=== PATIENT | female | born 2000 | race American Indian/Alaskan Native ===

== ENCOUNTER 2019-05-17 17:32 | Emergency (ER) | payer OTHER, SELFPAY ==
[2019-05-17 17:48] VITALS: BP 118/74; PULSE 105; RESP 18; TEMP 37.9; O2SAT 100
--- NOTE | 2019-05-17 17:51 | ED.FEMALEGU ---
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 Reports the pain started 4 days ago, she noticed the lump 3 days ago. Reports is very painful, painful to sit. She denies any drainage from the area. She denies abnormal vaginal discharge, exposure to STDs. She reports she has been taking hot baths and ibuprofen with no relief. Reports low-grade temperature, chills. Denies general malaise. MD elicited complaint: other (Bartholin cyst) Related Data Allergies Allergy/AdvReac Type Severity Reaction Status Date / Time No Known Allergies Allergy Verified 05/17/19 17:38 Review of Systems Review of Systems: Narrative: CONSTITUTIONAL: Reports malaise, chills, low-grade fever. CARDIOVASCULAR: Denies chest pain, palpitations RESPIRATORY: Denies cough or dyspnea. GASTROINTESTINAL: Denies abdominal pain, nausea, vomiting GENITOURINARY: Denies dysuria or hematuria. SKIN: Denies rash or itching. Reports lump painful labia MUSCULOSKELETAL: Denies myalgia. NEUROLOGIC: Denies numbness, weakness, or headache. All systems reviewed & are unremarkable except as noted in HPI and below PMFSH Social History Social History Gender identity (if verbalized by the patient): Female Comments At time of signature, agree with nursing past medical, surgical, social and family history. There is no relevant family history pertinent to the presenting complaint Exam Narrative: Exam Narrative: GENERAL: Well-appearing, well-nourished, and in no acute distress. HEAD: Normocephalic. EYES: PERRLA, conjunctivae clear. NECK: Supple. No lymphadenopathy CHEST: Clear to auscultation. No respiratory distress. HEART: Regular rate and rhythm. No murmur heard. Normal peripheral pulses. SKIN: Warm, dry, no rash. : Bartholin gland abscess noted on the right labia, otherwise no induration, swelling, fluctuance, tenderness of the perianal area NEURO: Alert and oriented x3. PSYCH: Normal mood and affect : External Female Exam: normal external appearance and external swelling (Consistent with Bartholin cyst) Female genitals images: 1. Bartholin cyst approximately 2 cm x 4 cm Course Course Emergency Course: Patient is aware of diagnosis, understands and agrees to treatment plan. Anticipatory guidance given. Patient agrees to follow-up as directed and is aware of reasons to seek care at the emergency department. Portions of this record may have been created with voice recognition software Vital Signs Vital signs: Vital Signs Temperature 100.2 F H 05/17/19 17:48 Pulse Rate 105 H 05/17/19 17:48 Respiratory Rate 18 05/17/19 17:48 Blood Pressure 118/74 05/17/19 17:48 Pulse Oximetry 100 05/17/19 17:48 Temperature 100.2 F H 05/17/19 17:48 Pulse Rate 105 H 05/17/19 17:48 Respiratory Rate 18 05/17/19 17:48 Blood Pressure 118/74 05/17/19 17:48 Pulse Oximetry 100 05/17/19 17:48 Reviewed. Procedures Abscess I/D bartholin's gland: Date of Incision: 05/17/19 Time of Incision: 18:25 Side (if applicable): right Local Anesthetic: lidocaine 1% Technique: incised with #11 blade Amount of fluid expressed (mL): 8 Irrigation: No Packing used?: none I&D Results: Pus and Blood Complications: pain Abcess I&D Additional Comments: Patient was instructed to follow-up with her primary care provider tomorrow for re-evaluation. MDM - Female Genitourinary MDM Narrative Medical decision making narrative: Exam findings show no acute concerns or changes; patient is non-toxic appearing and is in no distress. Patient is appropriate for outpatient treatment and follow-up. Differential Di
== END 2019-05-17 19:05 | disposition home or self-care (01) ==
PROVIDERS: Emergency Provider Nurse Practitioner
DX: N75.1 Abscess of Bartholin's gland (principal); J45.909 Unspecified asthma, uncomplicated
CPT/HCPCS: 56420; 99203; G0463

== ENCOUNTER 2020-03-14 09:36 | Emergency (ER) | payer OTHER, SELFPAY ==
[2020-03-14 09:53] VITALS: BP 120/90; PULSE 83; RESP 16; TEMP 37.2; O2SAT 99
[2020-03-14 09:58] VITALS: BP 120/90; PULSE 83; RESP 16; TEMP 37.2; O2SAT 99
--- NOTE | 2020-03-14 09:59 | ED.NAVMDI ---
HPI - Nausea/Vomiting/Diarrhea General Chief complaint: Nausea/Vomiting/Diarrhea Stated complaint: Throwing Up Time Seen by Provider: 03/14/20 09:55 Source: patient and RN notes reviewed Mode of arrival: ambulatory Limitations: no limitations History of Present Illness HPI Narrative: 20-year-old female presents with concern for vomiting for 5 days. Reports she had been treated for urinary tract infection with Augmentin and was about group home through her course of antibiotics when she experienced vomiting and she stopped taking antibiotics. Reports she has been unable to keep fluids or food down. Reports chills, sweats. Denies fever. Denies abdominal pain, diarrhea, shortness of breath, cough, loss of sense of taste or smell. MD elicited complaint: vomiting Related Data Home Medications Medication Instructions Recorded Confirmed albuterol sulfate 2 inh INHALATION DIRECTED 03/14/20 03/14/20 amoxicillin-pot clavulanate 1 tablet PO BID 03/14/20 03/14/20 fluticasone propionate [Flovent 1 inh INHALATION DIRECTED 03/14/20 03/14/20 HFA] Allergies Allergy/AdvReac Type Severity Reaction Status Date / Time No Known Allergies Allergy Verified 03/14/20 09:51 Review of Systems Review of Systems: Narrative: CONSTITUTIONAL: Reports malaise, chills, sweats. Denies she fever. ENT: Denies rhinorrhea, congestion, sinus pain, otalgia or sore throat. CARDIOVASCULAR: Denies chest pain, palpitations, or edema. RESPIRATORY: Denies cough or dyspnea. GASTROINTESTINAL: Denies abdominal pain, diarrhea, bloody, or mucous stools.. Reports GENITOURINARY: Denies dysuria or hematuria. Reports decreased urine output MUSCULOSKELETAL: Denies myalgia. NEUROLOGIC: Denies headache. All systems reviewed & are unremarkable except as noted in HPI and below PMFSH Social History Social History Gender identity (if verbalized by the patient): Female Comments At time of signature, agree with nursing past medical, surgical, social and family history. There is no relevant family history pertinent to the presenting complaint Exam Narrative: Exam Narrative: GENERAL: Nontoxic appearing and in no acute distress. HEAD: Normocephalic, atraumatic. EYES: PERRLA, conjunctivae clear ENT: Nares clear. Mucous membranes dry. Oropharynx without edema, erythema, or lesions. Tonsils not enlarged and without exudate. NECK: Supple. No lymphadenopathy CHEST: Speaks in full sentences. Clear to auscultation, breath sounds even. No respiratory distress. HEART: Regular rate and rhythm. ABDOMEN: Soft, flat, nondistended. No guarding. Bowel sounds present in all four quadrants. Negative Lemus?s sign. No periumbilical tenderness. SKIN: Warm, dry, no rash. Poor skin turgor NEURO: Alert and oriented x3. PSYCH: Normal mood and affect Course Course Emergency Course: Patient is aware of, understands and agrees to reasons to be seen in the emergency department. Patient agrees to proceed directly to the emergency department. Portions of this record may have been created with voice recognition software Vital Signs Vital signs: Vital Signs Temperature 99.0 F 03/14/20 09:53 Pulse Rate 83 03/14/20 09:53 Respiratory Rate 16 03/14/20 09:53 Blood Pressure 120/90 03/14/20 09:53 Pulse Oximetry 99 03/14/20 09:53 Temperature 99.0 F 03/14/20 09:58 Pulse Rate 83 03/14/20 09:58 Respiratory Rate 16 03/14/20 09:58 Blood Pressure 120/90 03/14/20 09:58 Pulse Oximetry 99 03/14/20 09:58 Reviewed. Transfer Transfered to: [place] Transportation: Other (Private vehicle) Transfer rationale: Vomiting for 5 days MDM - Nausea/Vomiting/Diarrhea MDM Narrative Medical decision making narrative: Exam findings and history warrant further evaluation emergency department; patient is non-toxic appearing and is in no distress. Patient is appropriate for transfer via private vehicle. Critical Care Time Critical Care Time Critical Care Time: No Di
== END 2020-03-14 10:15 | disposition short-term general hospital (02) ==
PROVIDERS: Emergency Provider Nurse Practitioner
DX: R11.2 Nausea with vomiting, unspecified (principal); J45.909 Unspecified asthma, uncomplicated
CPT/HCPCS: 99212; G0463

== ENCOUNTER 2020-03-14 11:06 | Emergency (ER) | payer OTHER, SELFPAY ==
[2020-03-14] VITALS (8 sets, daily range): BP systolic 116–142; BP diastolic 73–91; PULSE 76–115; RESP 16–20; TEMP 36.6; O2SAT 98–100
--- NOTE | ~2020-03-14 | CT_ITS ---
EXAMINATION: CT abdomen pelvis w con DATE: 03/14/2020 17:00 INDICATION: Nausea and vomiting for 5 days TECHNIQUE: Computed tomography (CT) of the abdomen and pelvis was performed with 100 cc Omnipaque 350 intravenous contrast. The dose-length product was 161.01 mGy-cm. Automated exposure control and iter ative reconstruction technique were employed. COMPARISON: None. FINDINGS: Heart size normal. No significant pleural or pericardial effusion. The liver, spleen, pancr eas, adrenal glands and kidneys are unremarkable. Gallbladder is present. Nonobstructive bowel gas pa ttern. There is a small amount of free fluid in the pelvis. Bladder is unremarkable. No significant v ascular abnormality. No lymphadenopathy. There is a 2.1 cm cyst near the right vaginal introitus like ly a Bartholin cyst. No acute osseous abnormality. IMPRESSION: 1. No acute abdominal abnormality. 2: Cystic mass measuring 2.1 cm narrowing of the right vaginal introitus, most likely a Bartholin's c yst. Reviewed, dictated and finalized at location [facility]. 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 No acute abdominal abnormality. 2: Cystic mass measuring 2.1 cm narrowing of the right vaginal introitus, most likely a Bartholin's cyst.
[2020-03-14 11:54] LABS: Basophils Percent Auto 0.2 % (0.2-1.2); Hemoglobin 16.9 g/dL (12.0-15.0); Immature Granulocyte Absolute 0.05 K/mm3 (0.00-0.031); Immature Granulocyte Percent A 0.3 % (0-0.5); Lymphocytes Absolute Auto 4.22 K/mm3 (0.9-3.2); Lymphocytes Percent Auto 25.3 % (18.3-44.2); Mean Corpuscular HGB Conc 32.5 g/dl (32-36); Mean Corpuscular Volume 83.2 fl (80-100); Monocytes Absolute Auto 1.3 K/mm3 (0.1-0.6); Monocytes Percent Auto 7.7 % (2.6-8.5); Neutrophils Absolute Auto 11.1 K/mm3 (1.3-6.7); Neutrophils Percent Auto 66.5 % (45.5-73.1); Platelet Count Result 399 k/mm3 (150-375); Red Blood Count 6.25 M/mm3 (4.2-5.4); Red Cell Distribution Width 14.6 % (11.5-14.5); White Blood Count 16.7 K/mm3 (4.5-10.0)
[2020-03-14 12:10] LABS: Alanine Aminotransferase 16 U/L (4-35); Albumin Level 5.1 g/dL (3.5-5.1); Alkaline Phosphatase 114 U/L (38-126); Anion Gap 17 mmol/L (8-16); Aspartate Amino Transferase 28 U/L (14-36); Bilirubin,Total 1.2 mg/dL (0.2-1.3); Blood Urea Nitrogen 15 mg/dL (7-17); Calcium 9.9 mg/dL (8.4-10.2); Carbon Dioxide 24 mmol/L (22-30); Chloride 97 mmol/L (98-107); Estimated CRCL calculation 62 ml/min; Estimated Glomerular Filt Rate > 60; Glucose 83 mg/dL (65-105); Lipase 59 U/L (23-300); Potassium 4.1 mmol/L (3.4-5.0); Sodium 138 mmol/L (137-145)
[2020-03-14] MEDS: SODIUM CHLORIDE 0.9% IV 1,000 ML 999 ML IV CONT ×2 (12:47→14:15)
[2020-03-14] MEDS: METOCLOPRAMIDE HCL INJ 10 MG/2 ML VIAL IV PUSH (12:47)
[2020-03-14 12:48] LABS: Add Urine Microscopic? YES; Appearance Urine Cloudy (Clear); Bacteria Urine 1+ /hpf; Bilirubin Urine Negative (Negative); Blood Urine 3+ (Negative); Glucose Urine UA Negative (Negative); Ketones Urine 2+ mg/dL (Negative); Leukocyte Esterase Ur Trace LEU/UL (Negative); Mucus Urine Heavy /lpf; Nitrate Urine Negative (Negative); Protein Urine 3+ mg/dL (Negative); RBC Urine >75 /hpf (0-2); Squamous Epithelial Cell Urine Many /hpf (Few); Urobilinogen Urine Negative mg/dL (<2.0); WBC Urine 31-50 /hpf
[2020-03-14 12:51] LABS: Color Urine Amber (Yellow); Specific Grav Ur 1.035 (1.001-1.035)
[2020-03-14 13:01] LABS: Amphetamine Screen Urine Negative (Negative); Barbiturate Screen Urine Negative (Negative); Benzodiazepines Screen Urine Negative (Negative); Cannabinoid Screen Urine Positive (Negative); Cocaine Screen Urine Negative (Negative); Methadone Screen Urine Negative (Negative); Opiate Screen Urine Negative (Negative); Phencyclidine Screen Urine Negative (Negative)
--- NOTE | 2020-03-14 14:16 | PC.NURSE ---
Per EDP Jung, hold drawing repeat CBC until second liter of NS is completed.
--- NOTE | 2020-03-14 14:31 | ED.GENADULT ---
HPI - General Adult General Chief complaint: Nausea/Vomiting/Diarrhea Stated complaint: VOMITING X5D Time Seen by Provider: 03/14/20 12:25 Source: patient History of Present Illness HPI narrative: Patient is a 20 y/o female complaining of nausea and vomiting for last 5 days. She states that she is vomiting up food and liquid. She states that she vomited more than 10 times during last 24 hours. There is no alleviating or exacerbating factor. She has mild abdominal pain due to vomiting. She denies diarrhea. Related Data Home Medications Medication Instructions Recorded Confirmed albuterol sulfate 2 inh INHALATION DIRECTED 03/14/20 03/14/20 amoxicillin-pot clavulanate 1 tablet PO BID 03/14/20 03/14/20 fluticasone propionate [Flovent 1 inh INHALATION DIRECTED 03/14/20 03/14/20 HFA] Allergies Allergy/AdvReac Type Severity Reaction Status Date / Time No Known Allergies Allergy Verified 03/14/20 09:51 Review of Systems Constitutional: Constitutional: Denies chills, Denies fever(s), Denies headache(s) and Denies weakness Eyes: Eyes: Denies blurry vision ENT: Denies headache(s) and Denies neck pain Cardiovascular: Cardiovascular: Denies chest pain and Denies dyspnea Respiratory: Respiratory: Denies cough and Denies dyspnea Gastrointestinal: Gastrointestinal: Reports abdominal pain, Denies diarrhea, Reports nausea and Reports vomiting Genitourinary: Genitourinary: Denies hematuria and Denies dysuria Musculoskeletal: Musculoskeletal: Denies back pain and Denies neck pain Neurologic: Denies headache(s) and Denies weakness PMF Social History Social History Gender identity (if verbalized by the patient): Female Exam Const: General: no acute distress and well developed Orientation/consciousness: oriented to person, oriented to place, oriented to time and patient oriented x3 HENMT: Head: normocephalic Ears: external ears normal General nose exam: Normal external nose present Eyes: General: appearance normal, both eyes and all related structures Conjunctivae: conjunctivae normal Neck: Neck: normal visual inspection and full ROM Chest: Chest palpation & inspection: normal inspection of the chest and no tenderness Resp: Effort & Inspection: normal respiratory effort Auscultation: clear to auscultation bilaterally Cardio: Rate: regular rate Rhythm: regular rhythm GI: GI Palp: No abdominal tenderness and Yes Soft to palpation Skin: General skin exam: normal color and turgor normal Neuro: General: oriented to person, oriented to place, oriented to time and patient oriented x3 Cognition (Neuro): normal cognition Extrem: General: normal to inspection, full ROM and no pedal edema Psych: Appearance: grossly normal Mental Status: mental status grossly normal Affect: normal affect Course Vital Signs Vital signs: Vital Signs Temperature 36.6 C 03/14/20 11:33 Pulse Rate 80 03/14/20 11:33 Respiratory Rate 18 03/14/20 11:33 Blood Pressure 117/86 03/14/20 11:33 Pulse Oximetry 98 03/14/20 11:33 Temperature 36.6 C 03/14/20 18:00 Pulse Rate 91 03/14/20 18:00 Respiratory Rate 16 03/14/20 18:00 Blood Pressure 142/89 H 03/14/20 18:00 Pulse Oximetry 100 03/14/20 18:00 Medical Decision Making Vital Signs Vital Signs: Vital Signs Temperature 36.6 C 03/14/20 11:33 Pulse Rate 80 03/14/20 11:33 Respiratory Rate 18 03/14/20 11:33 Blood Pressure 117/86 03/14/20 11:33 Pulse Oximetry 98 03/14/20 11:33 Temperature 36.6 C 03/14/20 18:00 Pulse Rate 91 03/14/20 18:00 Respiratory Rate 16 03/14/20 18:00 Blood Pressure 142/89 H 03/14/20 18:00 Pulse Oximetry 100 03/14/20 18:00 Lab Data Result diagrams: 03/14/20 15:08 03/14/20 11:42 Labs: Lab Results 03/14/20 03/14/20 03/14/20 Range/Units 11:42 11:42 12:33 WBC 16.7 H (4.5-10.0) K/mm3 RBC
[2020-03-14 15:20] LABS: Basophils Percent Auto 0.3 % (0.2-1.2); Eosinophils Percent Auto 0.1 % (0-4.4); Hematocrit 43.4 % (37.0-47.0); Immature Granulocyte Absolute 0.04 K/mm3 (0.00-0.031); Immature Granulocyte Percent A 0.3 % (0-0.5); Mean Corpuscular HGB Conc 32.3 g/dl (32-36); Mean Corpuscular Hemoglobin 27.1 pg (26-34); Mean Corpuscular Volume 84.1 fl (80-100); Mean Platelet Volume 10.7 fl (7.4-10.4); Monocytes Absolute Auto 1.1 K/mm3 (0.1-0.6); Neutrophils Absolute Auto 9.1 K/mm3 (1.3-6.7); Neutrophils Percent Auto 69.3 % (45.5-73.1); Platelet Count Result 315 k/mm3 (150-375); Red Blood Count 5.16 M/mm3 (4.2-5.4); Red Cell Distribution Width 13.7 % (11.5-14.5); White Blood Count 13.2 K/mm3 (4.5-10.0)
== END 2020-03-14 18:12 | disposition home or self-care (01) ==
PROVIDERS: Emergency Medicine; Emergency Provider Emergency Medicine
DX: R11.2 Nausea with vomiting, unspecified (principal); F12.90 Cannabis use, unspecified, uncomplicated; E86.0 Dehydration; N75.0 Cyst of Bartholin's gland
CPT/HCPCS: 36415; 74177; 80053; 80307; 81001; 81025; 83690; 85025; 87086; 87088; 96361; 96374; 99284; J2765; J7030; Q9967

== ENCOUNTER 2020-04-19 20:02 | Emergency (ER) | payer OTHER, SELFPAY ==
--- NOTE | ~2020-04-19 | CT_ITS ---
EXAMINATION: CT abdomen pelvis wo con DATE: 04/19/2020 22:45 INDICATION: Abdominal pain and vomiting TECHNIQUE: Computed tomography (CT) of the abdomen and pelvis was performed without intravenous contr ast. Automated exposure control and iterative reconstruction technique were employed. Exam dose: 171 .44 mGy-cm total exam DLP. COMPARISON: 03/14/[address] abdomen pelvis FINDINGS: The lung bases are clear. Normal heart size. No pericardial or pleural effusion. No hepatic space-occupying mass lesion is evident. High density bile within the gallbladder. No gallb ladder wall thickening or pericholecystic fluid or fat stranding is evident. No bile duct or pancreat ic duct dilatation. No pancreatic mass lesion or calcification is evident. Normal splenic size. Normal morphology of the adrenal glands. No renal mass lesion is evident on this limited noncontrast examination. No urinary tract calculus or hydroureteronephrosis. The urinary bladder is evacuated and not optimally evaluated. Normal caliber of the abdominal aorta. No intraperitoneal or retroperitoneal or pelvic mass lesion or adenopathy or ascites is detected. No bowel obstruction is detected. Previously reported right Bartholin's cyst is diminished in size or resolved since 03/14/2020. Included skeletal structures are unremarkable. IMPRESSION: No significant abnormality Reviewed, dictated and finalized at [facility]. Reviewed, dictated and finalized at location [facility]. 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
[2020-04-19 20:03] VITALS: BP 118/80; PULSE 80; RESP 16; TEMP 36.8; O2SAT 99
[2020-04-19 20:48] VITALS: BP 128/81; PULSE 71
[2020-04-19 21:15] LABS: Basophils Absolute Auto 0.1 K/mm3 (0.0-0.1); Basophils Percent Auto 0.3 % (0.2-1.2); Eosinophils Percent Auto 0.1 % (0-4.4); Hematocrit 46.1 % (37.0-47.0); Hemoglobin 14.8 g/dL (12.0-15.0); Immature Granulocyte Absolute 0.06 K/mm3 (0.00-0.031); Immature Granulocyte Percent A 0.3 % (0-0.5); Lymphocytes Percent Auto 13.8 % (18.3-44.2); Mean Corpuscular HGB Conc 32.1 g/dl (32-36); Mean Platelet Volume 11.5 fl (7.4-10.4); Monocytes Absolute Auto 0.9 K/mm3 (0.1-0.6); Monocytes Percent Auto 5.2 % (2.6-8.5); Neutrophils Percent Auto 80.3 % (45.5-73.1); Platelet Count Result 288 k/mm3 (150-375); Red Blood Count 5.49 M/mm3 (4.2-5.4); Red Cell Distribution Width 14.1 % (11.5-14.5); White Blood Count 17.4 K/mm3 (4.5-10.0)
[2020-04-19 21:28] LABS: Alanine Aminotransferase 41 U/L (4-35); Albumin Level 4.8 g/dL (3.5-5.1); Alkaline Phosphatase 99 U/L (38-126); Anion Gap 14 mmol/L (8-16); Aspartate Amino Transferase 53 U/L (14-36); Bilirubin,Total 1.6 mg/dL (0.2-1.3); Blood Urea Nitrogen 10 mg/dL (7-17); Calcium 9.2 mg/dL (8.4-10.2); Carbon Dioxide 20 mmol/L (22-30); Chloride 106 mmol/L (98-107); Estimated CRCL calculation 93 ml/min; Estimated Glomerular Filt Rate > 60; Glucose 74 mg/dL (65-105); Lipase 175 U/L (23-300); Potassium 3.7 mmol/L (3.4-5.0); Sodium 140 mmol/L (137-145)
[2020-04-19] MEDS: SODIUM CHLORIDE 0.9% IV 1,000 ML 999 ML IV CONT ×2 (21:46)
[2020-04-19] MEDS: METOCLOPRAMIDE HCL INJ 10 MG/2 ML VIAL IV PUSH (21:47)
[2020-04-19 21:48] VITALS: BP 140/91; PULSE 75; RESP 18; O2SAT 100
--- NOTE | 2020-04-19 21:48 | ED.GENADULT ---
HPI - General Adult General Chief complaint: Nausea/Vomiting/Diarrhea Stated complaint: nausea Time Seen by Provider: 04/19/20 21:07 History of Present Illness HPI narrative: Patient is a 20-year-old female who presents the emerge department chief complaint of nausea and vomiting. The patient reports that for the last 5 days she has had nausea and vomiting and been unable to tolerate p.o. intake. Patient reports she was seen at [facility] and was treated with IV fluids and nausea medications. The patient reports that she has had similar episodes in the past that required IV hydration. Patient states that she has generalized abdominal pain reports no fever reports has had some diarrhea for the last several days but currently none today. Patient reports that she feels very weak and gets lightheaded whenever she stands up. Related Data Home Medications Medication Instructions Recorded Confirmed albuterol sulfate 2 inh INHALATION DIRECTED 03/14/20 03/14/20 amoxicillin-pot clavulanate 1 tablet PO BID 03/14/20 03/14/20 fluticasone propionate [Flovent 1 inh INHALATION DIRECTED 03/14/20 03/14/20 HFA] Allergies Allergy/AdvReac Type Severity Reaction Status Date / Time No Known Allergies Allergy Verified 03/14/20 09:51 Review of Systems Review of Systems: Narrative: A 10 system review of systems was completed on the patient and is negative except for what is stated in the HPI. Nursing and ancillary documentation was reviewed. [facility] Social History Social History Gender identity (if verbalized by the patient): Female Comments Patient denies a significant past medical history Social history the patient reports occasional use of marijuana Exam Narrative: Exam Narrative: GENERAL: Well-appearing, well-nourished, and in no acute distress. HEAD: Normocephalic, atraumatic. EYES: PERRLA and EOMI. ENT: Nares clear, no rhinorrhea or epistaxis. Mucous membranes moist. NECK: Supple. CHEST: Clear to auscultation. No respiratory distress. HEART: Regular rate and rhythm. No murmur heard. Normal peripheral pulses. ABDOMEN: Soft, nontender, nondistended, normal active bowel sounds. EXTREMITIES: Normal range of motion. No edema. SKIN: Warm, dry, no rash. NEURO: No focal deficits. Alert and oriented x3. PSYCH: Normal mood and affect. Course Course Emergency Course: CT scan shows no evidence of acute abnormality laboratory studies showed mild elevation in LFTs. Patient was able to tolerate p.o. intake did have a small amount of vomiting afterwards. The patient was able to ambulate without difficulty patient will be discharged home with oral antiemetic and instructions to follow-up with a primary care physician. Vital Signs Vital signs: Vital Signs Temperature 36.8 C 04/19/20 20:03 Pulse Rate 80 04/19/20 20:03 Respiratory Rate 16 04/19/20 20:03 Blood Pressure 118/80 04/19/20 20:03 Pulse Oximetry 99 04/19/20 20:03 Temperature 36.8 C 04/19/20 20:03 Pulse Rate 99 04/20/20 00:18 Respiratory Rate 18 04/20/20 00:18 Blood Pressure 124/79 04/20/20 00:18 Pulse Oximetry 100 04/20/20 00:18 Medical Decision Making Vital Signs Vital Signs: Vital Signs Temperature 36.8 C 04/19/20 20:03 Pulse Rate 80 04/19/20 20:03 Respiratory Rate 16 04/19/20 20:03 Blood Pressure 118/80 04/19/20 20:03 Pulse Oximetry 99 04/19/20 20:03 Temperature 36.8 C 04/19/20 20:03 Pulse Rate 99 04/20/20 00:18 Respiratory Rate 18 04/20/20 00:18 Blood Pressure 124/79 04/20/20 00:18 Pulse Oximetry 100 04/20/20 00:18 Lab Data Result diagrams: 04/19/20 21:06 04/19/20 21:06 Labs: Lab Results 04/19/20 04/19/20 04/19/20 Range/Units 21:06 21:06 22:28 WBC 17.4 H (4.5-10.0) K/mm3 RBC 5.49 H (4.2-5.4) M/mm3 Hgb 14.8 (12.0-15.0) g/dL Hct 46.1 (37.0-47.0) % MCV 84.0
--- NOTE | 2020-04-19 22:11 | PC.NURSE ---
pt has been asked several times to give a urine sample , and has been unable.
[2020-04-19 22:44] LABS: Add Urine Microscopic? YES; Appearance Urine Clear (Clear); Bilirubin Urine Negative (Negative); Blood Urine Negative (Negative); Color Urine Yellow (Yellow); Glucose Urine UA Negative (Negative); Ketones Urine 2+ mg/dL (Negative); Leukocyte Esterase Ur Negative LEU/UL (Negative); Mucus Urine Rare /lpf; Nitrate Urine Negative (Negative); Protein Urine 1+ mg/dL (Negative); RBC Urine 0-2 /hpf (0-2); Squamous Epithelial Cell Urine Few /hpf (Few); Urobilinogen Urine Negative mg/dL (<2.0); WBC Urine 0-3 /hpf
[2020-04-19 22:46] LABS: Specific Grav Ur 1.033 (1.001-1.035)
[2020-04-19 23:09] VITALS: BP 136/88; PULSE 75; RESP 18; O2SAT 100
[2020-04-20 00:18] VITALS: BP 124/79; PULSE 99; RESP 18; O2SAT 100
[2020-04-20 01:34] VITALS: BP 126/77; PULSE 72; RESP 18; O2SAT 99
== END 2020-04-20 01:37 | disposition home or self-care (01) ==
PROVIDERS: Emergency Medicine; Emergency Provider Emergency Medicine
DX: R11.2 Nausea with vomiting, unspecified (principal)
CPT/HCPCS: 36415; 74176; 80053; 81001; 81025; 83690; 85025; 96361; 96374; 99284; J2765; J7030

== ENCOUNTER 2023-08-16 14:07 | Emergency (ER) | payer OTHER, SELFPAY ==
[2023-08-16 14:32] VITALS: BP 117/74; PULSE 91; RESP 16; TEMP 36.4; O2SAT 96
--- NOTE | 2023-08-16 15:28 | ED.NAVMDI ---
HPI - Nausea/Vomiting/Diarrhea General Chief complaint: Nausea/Vomiting/Diarrhea Stated complaint: vomitting Time Seen by Provider: 08/16/23 14:51 Source: patient and family ( mother) Mode of arrival: ambulatory Limitations: no limitations History of Present Illness HPI Narrative: 23-year-old female presents with nausea and vomiting greater than weeks duration. Patient states she has episodes of this that occur. she states she has previously been told this was attributed to cannabinoid hyperemesis syndrome but she states the last time she used marijuana was at the end of June. She notes that often she will experience the symptoms approximately 1 week after menstruation. Her last menstrual period was 08/06/2023 psych finished on 08/13/2023. Her last bowel movement was 08/06/2023 described as runny. She denies any dysuria, hematuria, or urgency or frequency she is having suprapubic and left lower quadrant abdominal pain. She states that often she will feel like she needs to urinate but not produce any or have a small void. denies any other vaginal discharge. Related Data Home Medications Medication Instructions Recorded Confirmed albuterol sulfate 90 mcg/actuation 2 inh inhalation DIRECTED 03/14/20 03/14/20 aerosol inhaler amoxicillin 875 mg-potassium 1 tablet PO BID 03/14/20 03/14/20 clavulanate 125 mg tablet fluticasone propionate 110 1 inh inhalation DIRECTED 03/14/20 03/14/20 mcg/actuation HFA aerosol inhaler (Flovent HFA) Allergies Allergy/AdvReac Type Severity Reaction Status Date / Time No Known Allergies Allergy Verified 03/14/20 09:51 [facility] Social History Social History Substance use type: marijuana Last use: June 2023 Gender identity (if verbalized by the patient): Female Exam Narrative: GENERAL: thin but in no acute distress. HEAD: Normocephalic, atraumatic. EYES: Non injected, non icteric ENT: Nares clear, no rhinorrhea or epistaxis. NECK: Supple. CHEST: Speaking in full sentences. No respiratory distress. HEART: Regular rate and rhythm. . ABDOMEN: Soft, nondistended. Mild suprapubic and LLQ tenderness to palpation without rigidity or guarding. Not peritoneal. EXTREMITIES: Normal range of motion. No edema. SKIN: Warm, dry, no rash. NEURO: No focal deficits. Alert and oriented x3. PSYCH: Normal mood and affect. Course Vital Signs Vital signs: Vital Signs Temperature 97.6 F 08/16/23 14:32 Pulse Rate 91 08/16/23 14:32 Respiratory Rate 16 08/16/23 14:32 Blood Pressure 117/74 08/16/23 14:32 Pulse Oximetry 96 08/16/23 14:32 Oxygen Delivery Room Air 08/16/23 14:32 Temperature 97.8 F 08/16/23 17:27 Pulse Rate 70 08/16/23 18:22 Respiratory Rate 20 08/16/23 18:22 Blood Pressure 110/74 08/16/23 18:22 Pulse Oximetry 99 08/16/23 18:22 Oxygen Delivery Room Air 08/16/23 14:32 MDM - Nausea/Vomiting/Diarrhea MDM Narrative Medical decision making narrative: Patient presents with nausea vomiting occurring for more than 1 week and associated with low abdominal pain. Patient states she has previously been told that these cyclical episodes that she experienced his yd possibly due to cannabinoid hyperemesis syndrome but she has used marijuana since the end of June. She does note that she will often experience the symptoms after her menstrual period. In the emergency department they are afebrile with vital signs within normal limits. While the initial presumption was a possibility of cannabinoid hyperemesis syndrome, patient does endorse lower abdominal pain than would be expected for typical epigastric pain of CHS. for this reason, in addition to symptomatically treating, will obtain labs and urine. Urinalysis is concerning for urinary tract infection and she does have some suprapubic /left lower quadrant abdominal pain. Patient given 1st dose of antibiotic while in the emergency department. On reassessment, she is drowsy but arousable to verbal stimuli. She is also noted to be hypokalemic and this is repleted with a check of magnesium which is normal. Patient and her mother are updated on the findings and mother verifies understanding. Mother will be providing transportation given patient's somnolence. Advised follow-up with primary care physician return to the emergency department with any new or worsening symptoms. Verifies understanding. Comfortable with the plan. Differential Diagnosis Differential diagnosis: Likely gastroenteritis, drug-induced nausea and vomiting, dehydration and other ( Urinary tract infection, diverticulitis, cannabinoid hyperemesis syndrome, pancreatitis , /ectopic, cyclic vomiting, post menstrual pain) Lab Data Attestation: I reviewed the patient's lab results. Lab results narrative: Mild leukocytosis and thrombocytosis. Mild hyponatremia 08/16/23 16:28 08/16/23 16:28 Labs: Lab Results 08/16/23 08/16/23 Range/Units 16:27 16:28 WBC 13.1 H (4.5-10.0) K/mm3 RBC 5.56 H (4.2-5.4) M/mm3 Hgb 15.0 (12.0-15.0) g/dL Hct 47.0 (37.0-47.0) % MCV 84.5 (80-100) fl MCH 27.0 (26-34) pg MCHC 31.9 L (32-36) g/dl RDW 13.2 (11.5-14.5) % Plt Count 406 H (150-375) k/mm3 MPV 12.0 H (7.4-10.4) fl Immature Gran % (Auto) 0.3 (0-0.5) % Neut % (Auto) 67.0 (45.5-73.1) % Lymph % (Auto) 23.6 (18.3-44.2) % Winn % (Auto) 8.5 (2.6-8.5) % Eos % (Auto) 0.2 (0-4.4) % Baso % (Auto) 0.4 (0.2-1.2) % Lymph # (Auto) 3.09 (0.9-3.2) K/mm3 Winn # (Auto) 1.1 H (0.1-0.6) K/mm3 Eos # (Auto) 0.0 (0-0.3) K/mm3 Baso # (Auto) 0.1 (0.0-0.1) K/mm3 Abs Immat Gran (auto) 0.04 H (0.00-0.031) K/mm3 Absolute Neuts (auto) 8.8 H (1.3-6.7) K/mm3 Absolute Nucleated RBC 0.000 (0.0-0.012) K/mm3 Nucleated RBC % 0.0 (0.0-0.2) % Sodium 134 L (137-145) mmol/L Potassium 3.1 L (3.4-5.0) mmol/L Chloride 97 L (98-107) mmol/L Carbon Dioxide 29 (22-30) mmol/L Anion Gap 8 (4-12) mmol/L BUN 12 (7-17) mg/dL Creatinine 0.80 (0.7-1.0) mg/dL Estim Creat Clear Calc 63 ml/min Estimated GFR > 60 (59 - ) Glucose 95 (65-110) mg/dL Calcium 9.2 (8.4-10.2) mg/dL Magnesium 2.5 H (1.6-2.3) mg/dL Total Bilirubin 1.2 (0.2-1.3) mg/dL AST 25 (14-36) U/L ALT 10 (6-35) U/L Alkaline Phosphatase 95 (38-126) U/L Total Protein 8.0 (6.3-8.2) g/dL Albumin 4.9 (3.5-5.1) g/dL Lipase 71 (23-300) U/L Urine Color Dark yellow (Yellow) Urine Appearance Cloudy H (Clear) Urine pH 6.5 (5.0-9.0) Ur Specific [place] 1.036 H (1.001-1.035) Urine Protein 1+ H (Negative) mg/dL Urine Glucose (UA) Negative (Negative) mg/dL Urine Ketones 1+ H (Negative) mg/dL Ur Blood (Man) Negative (Negative) Urine Nitrate Negative (Negative) Urine Bilirubin Negative (Negative) Urine Urobilinogen 1.0 (<2.0) mg/dL Add Ur Microanalysis Reviewed Leukocyte Esterase Rfl 1+ H (Negative) ALMA/UL Urine RBC 0-2 (0-2) /hpf Urine WBC 11-20 H (0-3) /hpf Ur Squamous Epith Cells Moderate (Few) /hpf Urine Bacteria 1+ H /hpf Urine Casts 3-5 UCG Bedside Result Negative Reference Range: Negative Discharge Plan Discharge Clinical Impression: Nausea & vomiting, Thrombocytosis, Leukocytosis, Hypokalemia, Hyponatremia, UTI (urinary tract infection) Patient Disposition: Home, Self-Care Condition: Stable Instructions: Antibiotic Form, Urinary Tract Infection in Women (DC), Hyponatremia (ED), Hypokalemia (ED), Acute Nausea and Vomiting (ED) Additional Instructions: You were found to have a urinary tract infection. First dose of antibiotic given in the emergency department the rest of the course prescribed. You will be notified if it does not appear based on lab results that this antibiotic will treat this particular urinary tract infection and if your antibiotic needs to be changed. you were also found to have a low potassium. This was supplemented while in the emergency department. follow-up with primary care physician. If you do not have 1 the name of someone was listed below. Return to the emergency department with any new or worsening symptoms. if your nausea vomiting persist you can take the oral disintegrating tablet prescribed. Prescriptions: New ondansetron 4 mg tablet,disintegrating 4 mg PO Q8H PRN (Reason: nausea and vomiting) Qty: 7 0RF sulfamethoxazole-trimethoprim [Bactrim DS] 800-160 mg tablet 1 tablet PO Q12H Qty: 10 0RF ondansetron 4 mg tablet,disintegrating 4 mg PO Q8H PRN (Reason: nausea and vomiting) Qty: 7 0RF sulfamethoxazole-trimethoprim [Bactrim DS] 800-160 mg tablet 1 tablet PO Q12H 5 Days Qty: 10 0RF No Action albuterol sulfate 90 mcg/actuation HFA aerosol inhaler 2 inh INHALATION DIRECTED Flovent HFA 110 mcg/actuation HFA aerosol inhaler 1 inh INHALATION DIRECTED amoxicillin-pot clavulanate 875-125 mg tablet 1 tablet PO BID metoclopramide HCl [Reglan] 10 mg tablet 10 mg PO Q6H PRN (Reason: nausea and vomiting) Qty: 20 0RF ondansetron 4 mg tablet,disintegrating 4 mg PO Q8H PRN (Reason: nausea and vomiting) Qty: 12 0RF Follow-up/Referrals: Han Orozco MD [Physician] - UNKNOWN,DOCTOR [Primary Care Provider] - Stand Alone Forms: Work/School Release IP Time of Disposition: 18:12
[2023-08-16] MEDS: diphenhydrAMINE HCl INJ 50 MG/ML VIAL 25 MG IV PUSH (15:40)
[2023-08-16] MEDS: HALOPERIDOL LACTATE 5 MG/ML VIAL 2.5 MG IV PUSH (15:41)
[2023-08-16] MEDS: ACETAMINOPHEN 500 MG TABLET 1000 MG PO (16:19)
[2023-08-16 16:35] LABS: Basophils Absolute Auto 0.1 K/mm3 (0.0-0.1); Basophils Percent Auto 0.4 % (0.2-1.2); Eosinophils Percent Auto 0.2 % (0-4.4); Immature Granulocyte Absolute 0.04 K/mm3 (0.00-0.031); Immature Granulocyte Percent A 0.3 % (0-0.5); Lymphocytes Absolute Auto 3.09 K/mm3 (0.9-3.2); Lymphocytes Percent Auto 23.6 % (18.3-44.2); Mean Corpuscular HGB Conc 31.9 g/dl (32-36); Mean Corpuscular Volume 84.5 fl (80-100); Monocytes Absolute Auto 1.1 K/mm3 (0.1-0.6); Monocytes Percent Auto 8.5 % (2.6-8.5); Neutrophils Absolute Auto 8.8 K/mm3 (1.3-6.7); Platelet Count Result 406 k/mm3 (150-375); Red Blood Count 5.56 M/mm3 (4.2-5.4); Red Cell Distribution Width 13.2 % (11.5-14.5); White Blood Count 13.1 K/mm3 (4.5-10.0)
[2023-08-16 16:50] LABS: Alanine Aminotransferase 10 U/L (6-35); Albumin Level 4.9 g/dL (3.5-5.1); Alkaline Phosphatase 95 U/L (38-126); Anion Gap 8 mmol/L (4-12); Appearance Urine Cloudy (Clear); Aspartate Amino Transferase 25 U/L (14-36); Bacteria Urine 1+ /hpf; Bilirubin Urine Negative (Negative); Bilirubin,Total 1.2 mg/dL (0.2-1.3); Blood Urea Nitrogen 12 mg/dL (7-17); Blood Urine Negative (Negative); Calcium 9.2 mg/dL (8.4-10.2); Carbon Dioxide 29 mmol/L (22-30); Chloride 97 mmol/L (98-107); Color Urine Dark Yellow (Yellow); Estimated CRCL calculation 63 ml/min; Estimated Glomerular Filt Rate > 60; Glucose 95 mg/dL (65-110); Glucose Urine UA Negative (Negative); Ketones Urine 1+ mg/dL (Negative); Leukocyte Esterase Ur 1+ LEU/UL (Negative); Lipase 71 U/L (23-300); Need Manual Microscopic Reviewed; Nitrate Urine Negative (Negative); Potassium 3.1 mmol/L (3.4-5.0); Protein Urine 1+ mg/dL (Negative); RBC Urine 0-2 /hpf (0-2); Sodium 134 mmol/L (137-145); Squamous Epithelial Cell Urine Moderate /hpf (Few); pH Urine 6.5 (5.0-9.0)
[2023-08-16 16:51] LABS: Specific Grav Ur 1.036 (1.001-1.035)
[2023-08-16 16:52] LABS: Add Urine Microscopic? YES
[2023-08-16 17:27] VITALS: BP 107/69; PULSE 88; RESP 16; TEMP 36.6; O2SAT 98
[2023-08-16 17:45] LABS: Magnesium 2.5 mg/dL (1.6-2.3)
[2023-08-16] MEDS: POTASSIUM BICARBONATE 25 MEQ TABEF 50 MEQ PO (17:48)
[2023-08-16 18:22] VITALS: BP 110/74; PULSE 70; RESP 20; O2SAT 99
== END 2023-08-16 18:23 | disposition home or self-care (01) ==
PROVIDERS: Emergency Provider Student in an Organized Health Care Education/Training Program
DX: R11.2 Nausea with vomiting, unspecified (principal); D75.839 Thrombocytosis, unspecified; D72.829 Elevated white blood cell count, unspecified; E87.6 Hypokalemia; E87.1 Hypo-osmolality and hyponatremia; N39.0 Urinary tract infection, site not specified
CPT/HCPCS: 36415; 80053; 81001; 81025; 83690; 83735; 85025; 87086; 96365; 96375; 99284; A9270; J0696; J1200; J1630

== ENCOUNTER 2024-05-26 12:07 | Emergency (ER) | payer OTHER, SELFPAY ==
[2024-05-26 12:36] VITALS: BP 111/68; PULSE 87; RESP 15; TEMP 36.6; O2SAT 100
[2024-05-26] MEDS: AMOXICILLIN 500 MG CAPSULE PO (12:45)
[2024-05-26] MEDS: KETOROLAC 30 MG/ML VIAL (*BKC) IM (12:45)
--- NOTE | 2024-05-26 12:52 | ED_ITS ---
HPI - Dental/Oral General Chief complaint: Dental/Oral Stated complaint: dental pain Time Seen by Provider: 05/26/24 12:14 History of Present Illness HPI Narrative: Patient presents here with dental pain and swelling, has been going on for last few days, but this morning noticed a swelling so came in. No systemic symptoms., saw dentist recently had x-rays taken but they didn't take her insurance Related Data Home Medications ?Medication ?Instructions ?Recorded ?Confirmed ?Last Taken ?Type albuterol sulfate 90 mcg/actuation 2 inh inhalation DIRECTED 03/14/20 03/14/20 Unknown History aerosol inhaler amoxicillin 875 mg-potassium 1 tablet PO BID 03/14/20 03/14/20 Unknown History clavulanate 125 mg tablet fluticasone propionate 110 1 inh inhalation DIRECTED 03/14/20 03/14/20 Unknown History mcg/actuation HFA aerosol inhaler (Flovent HFA) Allergies Allergy/AdvReac Type Severity Reaction Status Date / Time aloe vera Allergy Hives Verified 05/26/24 12:36 shellfish derived Allergy Anaphylaxis Verified 05/26/24 12:36 Review of Systems Review of Systems: All systems reviewed & are unremarkable except as noted in HPI and below PMFSH Social History Social History Substance use type: marijuana Last use: June 2023 Gender identity (if verbalized by the patient): Female Exam Narrative: EXAMINATION OF ORGAN SYSTEMS/BODY AREAS: Constitutional: Vital signs per nursing GENERAL:[No acute distress, non-toxic appearing.] HEAD: Normal with no signs of head trauma. EYES: EOMI, conjunctiva normal ENT: Hearing grossly intact, no trismus. Dental bob left upper premolar LUNGS: Nonlabored breathing. HEART: [Regular rate and rhythm] ABD: Nondistended EXT: Normal range of motion SKIN: Slight swelling left cheek NEURO: [Alert and oriented x 3. No gross focal sensory or strength deficits.] PSYCH: Normal affect Course Vital Signs Vital signs: Vital Signs Temperature 97.8 F 05/26/24 12:36 Pulse Rate 87 05/26/24 12:36 Respiratory Rate 15 05/26/24 12:36 Blood Pressure 111/68 05/26/24 12:36 Pulse Oximetry 100 05/26/24 12:36 Oxygen Delivery Room Air 05/26/24 12:36 Temperature 97.8 F 05/26/24 12:36 Pulse Rate 87 05/26/24 12:36 Respiratory Rate 15 05/26/24 12:36 Blood Pressure 111/68 05/26/24 12:36 Pulse Oximetry 100 05/26/24 12:36 Oxygen Delivery Room Air 05/26/24 12:36 MDM - Dental/Oral MDM Narrative Medical decision making narrative: ED COURSE AND MEDICAL DECISION MAKING: Patient with worsening dental pain and dental decay. Tiny palpable abscess which does not seem large/fluctuant enough to drain. No systemic signs or symptoms. Analgesics are administered. Abx started. Follow-up instructions given for dental/oral surgery clinics. Patient was given return precautions and discharged home in stable condition. Discharge Plan Discharge Clinical Impression: Dental abscess, Dental caries Patient Disposition: Home, Self-Care Condition: Stable Instructions: Dental Abscess (ED) Additional Instructions: Please follow up with your dentist as soon as possible; take the antibiotics as prescribed and come back if it gets worse. Patient Language: Luxembourgish Prescriptions: New amoxicillin 500 mg capsule 500 mg PO Q8H 7 Days Qty: 21 0RF No Action albuterol sulfate 90 mcg/actuation HFA aerosol inhaler 2 inh INHALATION DIRECTED Flovent HFA 110 mcg/actuation HFA aerosol inhaler 1 inh INHALATION DIRECTED amoxicillin-pot clavulanate 875-125 mg tablet 1 tablet PO BID ondansetron 4 mg tablet,disintegrating 4 mg PO Q8H PRN (Reason: nausea and vomiting) Qty: 7 0RF sulfamethoxazole-trimethoprim [Bactrim DS] 800-160 mg tablet 1 tablet PO Q12H Qty: 10 0RF ondansetron 4 mg tablet,disintegrating 4 mg PO Q8H PRN (Reason: nausea and vomiting) Qty: 7 0RF sulfamethoxazole-trimethoprim [Bactrim DS] 800-160 mg tablet 1 tablet PO Q12H 5 Days Qty: 10 0RF metoclopramide HCl [Reglan] 10 mg tablet 10 mg PO Q6H PRN (Reason: nausea and vomiting) Qty: 20 0RF ondansetron 4 mg tablet,disintegrating 4 mg PO Q8H PRN (Reason: nausea and vomiting) Qty: 12 0RF Follow-up/Referrals: PHYSICIAN NOT ON STAFF,NONSTAFF [Non-Staff] -
[2024-05-26 13:20] VITALS: BP 112/70; PULSE 83; RESP 16; TEMP 36.6; O2SAT 99
--- OUTSIDE RECORDS SUMMARY | 2024-05-26 13:53 | XMS_ITS | Clinical Summary ---
Author Organization [facility] Address [address] [place] [address] Care Team Providers Care Group Captain Name Role Phone Giselle Zhong NP Primary Care Provider [phone] Giselle Zhong NP Unavailable [phone] Allergies Active Allergy Reactions Criticality Noted Date Comments Aloe Rash Medium 07/17/2020 Rash Aloe Vera Urticaria Medium 11/05/2011 Benzocaine-Triclosan Rash Medium 02/22/2018 Shellfish Shortness of breath,Angioedema High 02/22/2018 Denies allergy to other shellfish Vitamin E Rash Medium 07/17/2020 Rash Medications ondansetron (ZOFRAN) 4 mg tablet Take 1 tablet (4 mg total) by mouth every 6 (six) hours 12 tablet 12/13/19 21 Active naproxen (NAPROSYN) 500 mg tablet Take 1 tablet (500 mg total) by mouth 2 (two) times a day with meals 60 tablet 04/16/19 24 Active amoxicillin-clavul anate (AUGMENTIN) 875-125 mg per tabletIndications: dental infection Take 1 tablet by mouth every 12 (twelve) hours 14 tablet 06/06/19 24 Active lidocaine viscous (XYLOCAINE) 2 % solutionIndication s:Mouth Irritation Apply 10 mL to the mouth or throat 3 (three) times a day as needed (for mouth/dental pain) 100 mL 06/06/19 24 Active chlorhexidine (PERIDEX) 0.12 % solution Apply 15 mL to the mouth or throat 2 (two) times a day 120 mL 06/06/19 24 Active ondansetron ODT (ZOFRAN-ODT) 4 mg disintegrating tablet Take 1-2 tablets (4-8 mg total) by mouth every 8 (eight) hours as needed for nausea or vomiting 20 tablet 08/08/19 24 Active prochlorperazine (COMPAZINE) 10 mg tablet Take 1 tablet (10 mg total) by mouth 2 (two) times a day as needed for nausea or vomiting 10 tablet 08/08/19 24 Active promethazine (PHENERGAN) 25 mg suppository Insert 1 suppository (25 mg total) into the rectum every 6 (six) hours as needed for nausea or vomiting 12 suppository 08/08/19 24 Active dicyclomine (BENTYL) 20 mg tablet Take 1 tablet (20 mg total) by mouth 2 (two) times a day 20 tablet 08/08/19 24 025 Active Active Problems No known active problems Social History Tobacco Use Types Packs/Day Years Used Date Smoking Tobacco: Never Alcohol Use Standard Drinks/Week Comments Not Currently 0 (1 standard drink = 0.6 oz pur e alcohol) Personal Safety Answer Date Recorded Have you ever been in or are you currently in a harmful physical or emotional relationship or is someone making you feel afraid or unsafe? 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 Gender Identity Not on file Sexual Orientation Not on file Obstetrics History Last Filed Vital Signs Vital Sign Reading Time Taken Comments Blood Pressure 104/85 02/11/2024 5:44 AM AGENCY SERVICE COORDINATOR Pulse 75 02/11/2024 5:44 AM AGENCY SERVICE COORDINATOR Temperature 36.3 C (97.4 F) 02/11/2024 5:44 AM AGENCY SERVICE COORDINATOR Respiratory Rate 18 02/11/2024 5:44 AM AGENCY SERVICE COORDINATOR Oxygen Saturation 100% 02/11/2024 5:44 AM AGENCY SERVICE COORDINATOR Inhaled Oxygen Concentration - - Weight 49.9 kg (110 lb) 02/11/2024 5:44 AM AGENCY SERVICE COORDINATOR Height 162.6 cm (5' 4 ) 02/11/2024 5:44 AM AGENCY SERVICE COORDINATOR Body Mass Index 18.88 02/11/2024 5:44 AM AGENCY SERVICE COORDINATOR Plan of Treatment Health Maintenance Due Date Last Done Comments Cervical Cancer Screening 1999 Depression Screening 1999 Hepatitis C Screening 1999 Pneumococcal vaccine <65 (1 of 1 - PPSV23) 2005 05/03/2000, 03/11/2000 Regular Well Visit/Exam 18-64 2017 DTaP/Tdap/Td Vaccine (7 - Td or Tdap) 2020 2010, 11/22/2003, 05/03/2000, Additional history exists Influenza Vaccine (#1) 2023 Hepatitis B Screening Completed 1999 , 1999, 1999, Additional history exists Varicella Vaccines Completed 10/28/2008, 03/11/2000 HPV Vaccines Completed 10/06/2014, 02/23, 2010 Covid-19 Vaccine Discontinued 02/23/2021 Insurance [facility] Care Teams Group Captain Relationship Specialty Start Date End Date Giselle Zhong NP PCP - General Nurse Practitioner 12/12/20 Giselle Zhong NP 12/12/20
--- OUTSIDE RECORDS SUMMARY | 2024-05-26 13:53 | XMS_ITS | Referral Summary ---
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 Gender Identity Not on file Sexual Orientation Not on file Last Filed Vital Signs Vital Sign Reading Time Taken Comments Blood Pressure 104/85 02/11/2024 5:44 AM AD[employer]ER [employer] Pulse 75 02/11/2024 5:44 AM [employer]ER [employer] Temperature 36.3 C (97.4 F) 02/11/2024 5:44 AM [employer] Respiratory Rate 18 02/11/2024 5:44 AM AD[employer]ER [employer] Oxygen Saturation 100% 02/11/2024 5:44 AM AD[employer]ER [employer] Inhaled Oxygen Concentration - - Weight 49.9 kg (110 lb) 02/11/2024 5:44 AM [employer] Height 162.6 cm (5' 4 ) 02/11/2024 5:44 AM AD[employer]ER [employer] Body Mass Index 18.88 02/11/2024 5:44 AM AD[employer]ER [employer] Plan of Treatment Not on file Insurance [facility] Care Teams Cage Fighter Relationship Specialty Start Date End Date Giselle Zhong NP PCP - General Nurse Practitioner 12/12/20 Giselle Zhong NP 12/12/20
--- OUTSIDE RECORDS SUMMARY | 2024-05-26 13:53 | XMS_ITS | Data Portability ---
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 Plan of Treatment Reminders Order Date Submit Date Provider Last Modified By Organization Details Last Modified Time Details Appointments None recorded. Lab CMP, serum or plasma 2023 024 [facility], [address] [place], [place] [address], [address], [place], [address], 4 11:13:43 CBC w/ auto diff 2023 024 [facility] [employer] [facility], [address] [place], [place] [address], [address], [place], [address], 4 11:13:57 TSH + free T4, serum 2023 024 [facility] [employer] [facility], [address] [place] [address], [address], [place], [address], 4 11:14:22 vitamin D, 25-hydroxy, total, serum 2023 024 [facility] [employer] [facility], [address], [place], [address], 4 11:14:34 iron + total iron-bindin g capacity (TIBC), serum 2023 024 [facility], [address] [facility], [address], [place], [address], 4 11:14:59 HIV 1 + 2, meaningful use set 2023 024 [facility], [address] [place] [address], [address], [place], [address], 4 11:15:13 CBC w/ auto diff 2022 023 [facility], [address] [place] [address], [address], [place], [address], 3 10:14:31 cytology report, thin prep, smear or scraping, cervical or vaginal 2021 022 [facility], [address] [place] [address], [address], [place], [address], 2 13:10:40 Referral None recorded. Procedures None recorded. Surgeries None recorded. Imaging None recorded. Medication Orders escitalopra m 10 mg tablet 2023 024 [facility], [address] [place], [address], 4 10:47:55 sertraline 50 mg tablet 2021 022 [facility] 1 [id number], [address] [place], [address], 4 10:41:16 28 mg iron-800 mcg tablet 2021 022 [facility] 1 [facility][id number], [address] [place], [address], 4 10:41:32 Patient TargetsNo targets recorded. Patient Instructions Encounter Date Encounter Id Patient Instructions Last Modified By Organization Details Last Modified Time 04/13/2021 [id number] A healthy lifestyle: care instructions taylor Not available 06/01/2021 15:11:23 06/06/2021 [id number] A healthy lifestyle: care instructions taylor Not available 06/06/2021 22:29:28 07/24/2022 [id number] A healthy lifestyle: care [facility] Not available 08/21/2022 07:13:50 Reason for Referral None Reported. Results Created Date Observation Date Name Description Value Unit Range Abnormal Flag Note LastModifiedBy Organization Detail LastModifiedTime 04/13/1904/15/2021 IGP,C TNGTV ,RFX APTIM A HPV ASCU chlamydia, nuc. acid amp Negati ve negati ve Not Available [facility] ([facility]) [address] [place], [address], 04/17/2021 13:10:40 04/13/19 22 04/15/2021 IGP,C TNGTV ,RFX APTIM A HPV ASCU gonococcus, nuc. acid amp Negati ve negati ve Not Available [facility] ([facility]) [address] [place], [address], 04/17/2021 13:10:40 04/13/19 22 04/15/2021 IGP,C TNGTV ,RFX APTIM A HPV ASCU trich vag by BENY Negati ve negati ve Not Available [facility] ([facility]) [address] [place], [address], 04/17/2021 13:10:40 04/13/19 22 04/17/2021 IGP,C TNGTV ,RFX APTIM A HPV ASCU diagnosis: Commen t NEGAT SAVI FOR INTRA EPITH ELIAL LESIO N OR MALKILEY ASUNCION . Not Available [facility] ([facility]) [address] [place], [address], 04/17/2021 13:10:40 04/13/19 22 04/17/2021 IGP,C TNGTV ,RFX APTIM A HPV ASCU specimen adequacy: Yevgeniy perez Satis facto ry for evalu ation . Endoc ervic al and/o r squam ous metap lasti c cells (endo cervi farhad compo nent) are prese nt. Not Available [facility] ([facility]) [address] [place], [address], 04/17/2021 13:10:40 04/13/19 22 04/17/2021 IGP,C TNGTV ,RFX APTIM A HPV ASCU clinician provided ICD10: Yevgeniy perez Z01.4 19 Not Available [facility] ([facility]) [address] [place], [address], 04/17/2021 13:10:40 04/13/19 22 04/17/2021 IGP,C TNGTV ,RFX APTIM A HPV ASCU performed by: Annie Ayala rd (ASCP ) Not Available [facility] ([facility]) [address] [place], [address], 04/17/2021 13:10:40 04/13/19 22 04/17/2021 IGP,C TNGTV ,RFX APTIM A HPV ASCU . . Not Available [facility] ([facility]) [address] [place], [address], 04/17/2021 13:10:40 04/13/19 22 04/17/2021 IGP,C TNGTV ,RFX APTIM A HPV ASCU note: Yevgeniy perez The Pap smear is a scree karyn test desig karina to aid in the detec tion of joyce ligna nt and malig nant condi tions of the uteri ne cervi x. It is not a diagn ostic proce dure and shoul d not be used as the sole means of detec ting cervi farhad cance r. Both false -posi tive and false -nega tive repor ts do occur . Not Available [facility] ([facility]) [address] [facility], [place], [address], 04/17/2021 13:10:40 04/13/19 22 04/17/2021 IGP,C TNGTV ,RFX APTIM A HPV ASCU test methodology: Commen t This liqui d based ThinP rep(R ) pap test was kevin collins with the use of an image guide carlyn systkalin may. Not Available [facility] ([facility]) [address] [facility], [place], [address], 04/17/2021 13:10:40 04/13/19 22 04/17/2021 IGP,C TNGTV ,RFX APTIM A HPV ASCU . Commen t The HPV DNA refle x crite tavia were not met with this speci men resul t there fore, no HPV testi ng was perfo rmed. Not Available [facility] ([facility]) [address] [facility], [place], [address], 04/17/2021 13:10:40 08/15/19 22 08/14/2021 URINE CULTU RE header [facility] [place] [address] Patie nt:AMBIKA CARLOS MP 6[address] Med Rec#: [id number] Order ing MD: DOV RAMOS : [birth year] Sex: F Locat ion: SEOER Test: URINE CULTU RE Colle ct Date: 08-14 23:53 Acces santiago #: [id number] Not Available [facility] (Lab) One [facility], [place], [address], 08/16/2021 10:54:51 08/15/19 22 08/15/2021 URINE CULTU RE urine culture SPECI MEN DESCR IPTIO N - URINE CLEAN CATCH SPECI AL REQUE STS - NO SPECI AL REQUE ST CULTU RE - POLYM ICROB IAL GROWT H CONSI STENT WITH ANDREAS L GENIT AL ALIYAH . SUHA PTIBI LITIE S NOT CULTU RE - ROUTI RICARDO PERFO RMED. REPOR T STATU S - FINAL 08/16 Not Available [facility] (Lab) [address] [facility], [place], [address], 08/16/2021 10:54:51 08/16/19 22 08/14/2021 BLOOD CULTU RE blood culture SPECI MEN DESCR IPTIO N - BLOOD SPECI AL REQUE STS - NO SPECI AL REQUE ST CULTU RE - NO GROWT H 5 DAYS REPOR T STATU S - FINAL 08/20 Not Available [facility] (Lab) [address] [facility], [place], [address], 08/20/2021 11:42:31 08/16/19 22 08/15/2021 BLOOD CULTU RE header [facility] [place] [address] Patie nt:AMBIKA CARLOS MP [address] [facility] Rec#: [id number] Order ing MD: DOV RAMOS : [birth year] Sex: F Locat ion: SEOER Test: BLOOD CULTU RE Colle ct Date: 08-15 00:03 Acces santiago #: [id number] Not Available [facility] (Lab) [address], [place], [address], 08/20/2021 11:42:31 08/16/19 22 08/14/2021 BLOOD CULTU RE blood culture SPECI MEN DESCR IPTIO N - BLOOD SPECI AL REQUE STS - NO SPECI AL REQUE ST CULTU RE - NO GROWT H 5 DAYS REPOR T STATU S - FINAL 08/20 Not Available [facility] (Lab) [address] [facility], [place], [address], 08/20/2021 11:42:35 08/16/19 22 08/15/2021 BLOOD CULTU RE header [facility] [place] [address] Patie nt:BREANNA JEFFREY AMBIKA NOÉ COOPER [address] Med Rec#: [id number] Order ing MD: DOV RAMOS : [birth year] Sex: F Locat ion: SEOER Test: BLOOD CULTU RE Colle ct Date: 08-15 00:03 Acces santiago #: [id number] Not Available [facility] (Lab) [address] [facility], [place], [address], 08/20/2021 11:42:35 07/20/19 23 07/19/2022 URINE CULTU RE header [facility] [place] [address] Patie nt:AMBIKA CARLOS MP 4899 Med Rec#: [id number] Order ricardo MD: SAMMI DOWELL : [birth year] Sex: F Locat ion: SEOER Test: URINE CULTU RE Colle ct Date: 07-19 21:41 Acces santiago #: [id number] Not Available [facility] (Lab) [address] [facility], [place], [address], 07/22/2022 08:38:38 07/20/19 23 07/19/2022 URINE CULTU RE urine culture SPECI MEN DESCR IPTIO N - URINE CLEAN CATCH SPECI AL REQUE STS - NO SPECI AL REQUE ST CULTU RE - MULTI PLE ORGAN ISMS PRESE NT, PROBA BLE CONTA MINAT ION. SUGGE ST REPEA T CULTU RE. REPOR T STATU S - FINAL 07/22 Not Available [facility] (Lab) One [facility], [place], [address], 07/22/2022 08:38:38 07/25/19 23 07/25/2022 CBC WITH DIFFE RENTI AL/PL ATELE T WBC 17.9 K/uL 3.4-10 .8 above high normal Not Available [facility] [address] [place], [address], 07/26/2022 10:14:31 07/25/19 23 07/25/2022 CBC WITH DIFFE RENTI AL/PL ATELE T RBC 5.4 M/uL 4.2-5. 4 Not Available [facility] [address] [place], [address], 07/26/2022 10:14:31 07/25/19 23 07/25/2022 CBC WITH DIFFE RENTI AL/PL ATELE T hemoglobin 14.3 g/dL 11.5-1 5.5 Not Available [facility] [address] [place], [address], 07/26/2022 10:14:31 07/25/19 23 07/25/2022 CBC WITH DIFFE RENTI AL/PL ATELE T hematocrit 45.7 % 36.0-4 8.0 Not Available [facility] [address] [place], [address], 07/26/2022 10:14:31 07/25/19 23 07/25/2022 CBC WITH DIFFE RENTI AL/PL ATELE T MCV 85 fL 80-95 Not Available [facility] [address] [place], [address], 07/26/2022 10:14:31 07/25/1907/25/2022 CBC WITH DIFFE RENTI AL/PL ATELE T MCH 27 pg 27-32 Not Available [facility] [address] [place], [address], 07/26/2022 10:14:31 07/25/19 23 07/25/2022 CBC WITH DIFFE RENTI AL/PL ATELE T MCHC 31 g/dL 32-36 below low normal Not Available [facility] [address] [place], [address], 07/26/2022 10:14:31 07/25/19 23 07/25/2022 CBC WITH DIFFE RENTI AL/PL ATELE T RDW 12.8 % 11.5-1 4.5 Not Available [facility] [address] [place], [address], 07/26/2022 10:14:31 07/25/19 23 07/25/2022 CBC WITH DIFFE RENTI AL/PL ATELE T platelets 400 K/uL 155-37 9 above high normal MPV 12.0 FL 8.9-1 2.7 N Not Available [facility] [address] [place], [address], 07/26/2022 10:14:31 07/25/19 23 07/25/2022 CBC WITH DIFFE RENTI AL/PL ATELE T NRBC 0 % Not Available [facility] [address] [place], [address], 07/26/2022 10:14:31 07/25/19 23 07/26/2022 MANUA L DIFFE RENTI AL neutrophils 51 % Not Available [facility] Department [address] [place], [address], 07/26/2022 10:14:30 07/25/19 23 07/26/2022 MANUA L DIFFE RENTI AL lymphs 37 % 14-46 Not Available [facility] [address] [place], [address], 07/26/2022 10:14:30 07/25/19 23 07/26/2022 MANUA L DIFFE RENTI AL monocytes 4 % Not Available [facility] [address] [place], [address], 07/26/2022 10:14:30 07/25/19 23 07/26/2022 MANUA L DIFFE RENTI AL eos 1 % Not Available [facility] [address] [place], [address], 07/26/2022 10:14:30 07/25/19 23 07/26/2022 MANUA L DIFFE RENTI AL differential comment Commen t BANDS , MANUA L 2 % N ATYPI FARHAD LYMPH S 5 % N IMMGR AN % N Not Available [facility] [address] [place], [address], 07/26/2022 10:14:30 07/25/19 23 07/26/2022 MANUA L DIFFE RENTI AL RBC comment Commen t RBCMO RP ABNOR MAL N OVALC YT RARE N POIKC Y OCCAS IONAL N ACANT HOCYT E(JUANCARLOS NTHO) RARE N ECHIN OCYTE S (ECHI NO) RARE N Not Available [facility] [address] [place], [address], 07/26/2022 10:14:30 07/25/19 23 07/26/2022 MANUA L DIFFE RENTI AL platelet comment Commen t PLATE LETS See Below N SLIGH T INCRE ASED Not Available [facility] [address] [place], [address], 07/26/2022 10:14:30 05/30/[address] ABD+p el W con [facility] [address] [facility] [place] [address] CT abdome n and pelvis with contra st: 05/30/19 22 7:49 AM INDICA TION: 21 year old with histor y of nausea /vomit ing, weight loss TECHNI QUE: After the admini strati on of 100 cc Isovue 370, intrav enousl y, CT is perfor med utiliz ing contig uous 3 mm axial collim ation throug h the abdome n, pelvis . Additi onally , multip lanar reform ats were obtain ed from axial source data. A dose loweri ng techni que was used for this proced ure, which may includ e, but is not limite d to, dose reduct ion techni ques, automa tarun exposu re contro l, the use of a iterat savi recons tructi on, and ALARA (as low as reason ably achiev able)/ image gently techni ques. COMPAR JENS: None availa ble. FINDIN GS: The visual ized portio ns of the lower lungs demons trates no nodule s, masses , or pleura l effusi ons. The heart is normal in size. Abdome n: The liver is normal in size, withou t parenc hymal abnorm ality , mass or intrah epatic ductal dilita tion. The common bile duct is normal calibe r. The gall bladde r is presen tsurgi falguni absent . The spleen is normal in size and appear ance. The pancre as does not demons trate any mass lesion or other abnorm ality. The bilate ral adrena l glands are unrema rkable . The bilate ral kidney s demons trate normal parenc hyma, withou t hydron ephros is, mass or calcul i. The unopac ified ureter s are grossl y normal . The stomac h and small bowel are normal in course and calibe r. The append ix is not visual ized. Howeve r, no defini te findin gs to sugges t acute append icitis . The colon demons trates no abnorm ality. There is no eviden ce of abnorm al bowel disten tion or obstru ction. Within the abdome n there is no abnorm al fluid, masses , or adenop athy. There is no abnorm al retrop eriton eal lympha denopa thy, and the aortoc aval area is also free of soft tissue abnorm ality. Pelvis : The ovarie s, uterus and bladde r demons trate no gross abnorm ality. Retrov erted uterus . The descen ding abdomi nal aorta is normal in course and calibe r withou t eviden ce for aneury sm. Osseou s struct ures demons trate no suspic ious osteol ytic or osteob lastic lesion s. Impres santiago: No defini te acute CT findin gs within the abdome n or pelvis . Ordere d By: MICHELL TY Electr onical ly Signed By: Hussein Cuevas MD on 05/30/19 7:54 AM Interp reted By: Hussein Cuevas MD, 05/30/19 7:49 AM 65 [email or web address] [facility] [address] [facility], [place], [address], 05/29/2021 09:20:06 05/30/19 CT ABD+p el W con [facility] [place] [address] Addend by: HUSSEIN CUEVAS on SatMay 29, 2021 8:01:1 4 AM [employer] Addend um report : Within the body of the report , the abdomi nal findin gs should includ e but the gallbl adder appear s normal . Additi onally , there is a partia lly visual ized probab le 3.1 x 1.6 cm Bartho laureano gland cyst. Ordere d By: MICHELL TY Electr onical ly Signed By: Hussein Cuevas MD on 05/30/19 8:00 AM Interp reted By: Hussein Cuevas MD, 05/30/19 7:[address] abdome n and pelvis with contra st: 05/30/19 7:49 AM INDICA TION: 21 year old with histor y of nausea /vomit ing, weight loss TECHNI QUE: After the admini strati on of 100 cc Isovue 370, intrav enousl y, CT is perfor med utiliz ing contig uous 3 mm axial collim ation throug h the abdome n, pelvis . Additi onally , multip lanar reform ats were obtain ed from axial source data. A dose loweri ng techni que was used for this proced ure, which may includ e, but is not limite d to, dose reduct ion techni ques, automa tarun exposu re contro l, the use of a iterat savi recons tructi on, and ALARA (as low as reason ably achiev able)/ image gently techni ques. COMPAR JENS: None availa ble. FINDIN GS: The visual ized portio ns of the lower lungs demons trates no nodule s, masses , or pleura l effusi ons. The heart is normal in size. Abdome n: The liver is normal in size, withou t parenc hymal abnorm ality , mass or intrah epatic ductal dilita tion. The common bile duct is normal calibe r. The gall bladde r is presen tsurgi falguni absent . The spleen is normal in size and appear ance. The pancre as does not demons trate any mass lesion or other abnorm ality. The bilate ral adrena l glands are unrema rkable . The bilate ral kidney s demons trate normal parenc hyma, withou t hydron ephros is, mass or calcul i. The unopac ified ureter s are grossl y normal . The stomac h and small bowel are normal in course and calibe r. The append ix is not visual ized. Howeve r, no defini te findin gs to sugges t acute append icitis . The colon demons trates no abnorm ality. There is no eviden ce of abnorm al bowel disten tion or obstru ction. Within the abdome n there is no abnorm al fluid, masses , or adenop athy. There is no abnorm al retrop eriton eal lympha denopa thy, and the aortoc aval area is also free of soft tissue abnorm ality. Pelvis : The ovarie s, uterus and bladde r demons trate no gross abnorm ality. Retrov erted uterus . The descen ding abdomi nal aorta is normal in course and calibe r withou t eviden ce for aneury sm. Osseou s struct ures demons trate no suspic ious osteol ytic or osteob lastic lesion s. Impres santiago: No defini te acute CT findin gs within the abdome n or pelvis . Ordere d By: MICHELL TY [facility] onical ly Signed By: Hussein Cuevas MD on 3/7/20 22 7:54 AM Interp reted By: Hussein Cuevas MD, 05/30/19 7:49 AM 65 [email or web address] [facility] 1 [facility], [place], [address], 05/29/2021 09:20:06 05/30/19 22 XR, chest [facility] [place] [address] Examin ation: Chest x-ray 1 view Access ion: [id number] Exam date/t chantell: 05/30/19 7:50 AM Reason For Exam: fatigu e, vomiti ng Compar jens: Chest radiog raph 018 Techni que: Uprigh t AP view of the chest demons trated . Findin gs: The cardia c silhou ette, medias tinal contou rs, and pulmon coretta vessel s appear normal . The lungs are clear. No pneumo thorax . No consol idatio ns or effusi ons are seen. Nipple rings. =====I MPRESS ION:== === No radiog raphic eviden ce of an acute cardio pulmon coretta abnorm ality. ====== ====== ====== === Ordere d By: MICHELL TY [facility] onical ly Signed By: Hussein Cuevas MD on 05/30/19 8:01 AM Interp reted By: Hussein Cuevas MD, 05/30/19 8:00 AM [facility] [address], [place], [address], 05/29/2021 09:20:07 05/30/19 22 ECG 12-le ad [facility] [place] [address] [facility] [place] [address] [place], [place] Test Date: 05-29 Pat Name: CLAIRE Roe [facility]: Eli perez ID: [id number] Room: [id number] 08 Gender : Female Techni araceli: [place] : 1999-03 Reques tarun By: KULWANT RAMOS Order Number : [id number] Yojana mijares MD: Barbara kirkland [employer] als [place] Rate: 83 P: 53 MN: 119 QRS: 76 QRSD: 82 T: 57 QT: 382 QTc: 451 Interp retive Statem ents SINUS RHYTHM WITH MARKED SINUS ARRHYT HMIA Compar ed to ECG 2016 14:21: 56 Sinus arrhyt hmia is now presen t Electr onical ly signed by Barbara kirkland at 05-30-19 11:00: [address], [address], 05/29/2021 12:19:37 05/30/19 22 ECG 12-le ad [facility] [place] [address] [facility] [place] [address] [place], [place] Test Date: 05-29 Pat Name: CLAIRE [facility] ment: Eli perez ID: [id number] Room: [facility] 08 Gender : Female Techni araceli: [place] : 1999-03 Reques tarun By: KULWANT RAMOS Order Number : [id number] Yojana mijares MD: Barbara kirkland [employer] Inter[employer] als [place] Rate: 83 P: 53 MN: 119 QRS: 76 QRSD: 82 T: 57 QT: 382 QTc: 451 Interp retive Statem ents SINUS RHYTHM WITH MARKED SINUS ARRHYT HMIA Compar ed to ECG 2016 14:21: 56 Sinus arrhyt hmia is now presen t Electr onical ly signed by Barbara kirkland at 05-30-19 11:00: 41 [employer] [address], [address], 05/29/2021 12:19:37 08/16/[address] ABD+p el W con [facility] ONE [facility] [place] [address] EXAMIN ATION: CT ABDOME N/PELV IS WITH CONTRA ST INDICA TION: Genera lized abdomi nal pain TECHNI QUE: Comput ed tomogr aphy of the abdome n, and pelvis was perfor med after admini strati on of intrav enous contra st, 80 cc of Isovue -370, withou t immedi ate compli cation , accord ing to routin e protoc ol. Radiat ion dose reduct ion techni que(s) were used COMPAR JENS: None availa ble. FINDIN GS: Lower Chest: Visual ized portio ns of the lung bases are clear. No cardio megaly or perica rdial thicke karyn/e ffusio n. No hiatal hernia . Hepato biliar y: The liver is normal in densit y withou t focal abnorm ality. The main portal vein is patent . No eviden ce of calcif ied gallst ones, gallbl adder wall thicke karyn or biliar y dilati on. Pancre as: No pancre atic ductal dilati on or surrou nding inflam matory change s. Spleen : Normal in size withou t focal abnorm ality. Adrena ls/Uri nary Tract: Both adrena l glands appear normal . The kidney s and collec ting system appear normal withou t eviden ce of urinar y tract calcul us or hydron ephros is. The bladde r is unrema rkable . Stomac h/Ceasar l: The stomac h, small bowel, and colon are normal in appear ance. No inflam matory change s, wall thicke karyn, or obstru ctive findin gs. A modera te amount of coloni c stool is presen t with fluid. The sigmor ectal juncti on. The append ix is normal . Lymph Nodes/ Vascul ar:No retrop eriton eal, mesent ronnie, or inguin al lympha denopa thy. No signif icant vascul ar findin gs are presen t. Pelvis : There is a small amount of fluid seen within the endome trial canal. There is fluid within the deep cul-de -sac. Within the left adnexa there is a low densit y cystic 2 cm lesion presen t, likely corpus luteum /ovari an cyst. Other: No abdomi nal wall mass or hernia . No free fluid. Muscul oskele estrada: No acute or signif icant osseou s abnorm ality. IMPRES SANTIAGO: Probab le left-s ided corpus luteum /simpl e ovaria n cyst. Small amount of fluid in the deep cul-de -sac. Modera te amount of coloni c stool withou t eviden ce of obstru ction. Referr ed By: Electr onical ly Signed By: Madeleine Topete MD on 2:04 AM Interp reted By: Madeleine Topete MD, 2:01 AM No labs, no iv NO LABS@0 044 80 [email or web address] [facility] 1 [facility], [place], [address], 08/15/2021 09:15:17 08/16/19 22 ECG 12-le ad [facility] ONE [address] [place] [address] [place], [place] Test Date: 08-15 Pat Name: CLAIRE PIZARRO Depart ment: 41 Patien t ID: [id number] Room: [place] [address] Gender : Female Techni araceli: GDD : 1999-03 2-16 Reques tarun By: KULWANT RAMOS Order Number : [id number] Yojana mijares MD: Lokesh mijares [employer] Inter[employer] als [place] Rate: 74 P: 71 MN: 127 QRS: 83 QRSD: 80 T: 76 QT: 370 QTc: 413 Interp retive Statem ents SINUS RHYTHM WITH OCCASI ONAL SUPRAV ENTRIC ULAR PREMAT URE COMPLE XES POSSIB LE RIGHT ATRIAL ENLARG EMENT [0.25m V P-WAVE ] Compar ed to ECG 2021 06:23: 57 Since prior tracin g no signif icant change Electr onical ly signed by Lokesh mijares at 14:22: [address], [address], 08/15/2021 15:38:43 08/16/19 22 ECG 12-le ad [facility] [address] [place] [address] [facility] [place] [address], [place] Test Date: 08-15 Pat Name: CLAIRE PIZARRO Depart ment: 41 Patijanet t ID: [id number] Room: [place] [address] Gender : Female Techni araceli: GDD : 1999-03 2-16 Reques tarun By: KULWANT RAMOS Order Number : [id number] Yojana mijares MD: Lokesh mijares [employer] Interv als [place] Rate: 74 P: 71 MN: 127 QRS: 83 QRSD: 80 T: 76 QT: 370 QTc: 413 Interp retive Statem ents SINUS RHYTHM WITH OCCASI ONAL SUPRAV ENTRIC ULAR PREMAT URE COMPLE XES POSSIB LE RIGHT ATRIAL ENLARG EMENT [0.25m V P-WAVE ] Compar ed to ECG 2021 06:23: 57 Since prior tracin g no signif icant change Electr onical ly signed by Lokesh mijares at 14:22: [address], [place], [address], 08/15/2021 15:38:43 07/21/19 23 ECG 12-le ad [facility] [address] [facility] [address] [place] [address] [facility] [place] [address], [place] Test Date: 07-19 Pat Name: CLAIRE [facility] Depart ment: 41 Patien t ID: [id number] Room: [place] Gender : Female Techni araceli: : 1999-03 Reques tarun By: SAMMI HENRY Order Number : [id number] Yojana mijares MD: Francisco Montano [employer] Interv als [place] Rate: 63 P: 69 MN: 131 QRS: 82 QRSD: 90 T: 72 QT: 409 QTc: 422 Interp retive Statem ents SINUS RHYTHM Compar ed to ECG 2021 00:12: 50 No signif icant change s Electr onical ly signed by Francisco Montano at 023 15:55: [address], [address], 07/23/2022 09:02:48 07/21/19 23 ECG 12-le ad [facility] [place] [address] [facility] [place] [address], [facility] [place] Test Date: 07-19 Pat Name: CLAIRE [facility] Depart ment: 41 Patien t ID: [id number] Room: [place] Gender : Female Techni araceli: : 1999-03 Reques tarun By: SAMMI HENRY Order Number : [id number] Yojana mijares MD: Francisco Montano [employer] Interv als [place] Rate: 63 P: 69 MN: 131 QRS: 82 QRSD: 90 T: 72 QT: 409 QTc: 422 Interp retive Statem ents SINUS RHYTHM Compar ed to ECG 2021 00:12: 50 No signif icant change s Electr onical ly signed by Francisco Montano at 023 15:55: [address], [address], 07/23/2022 09:02:49 Result Notes None recorded. 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 Procedures Surgical History Date Name Laterality Status Provider Name and Address Organization Details Recorded Time 10/25/19 16 Control Implant Removal completed JOSÉ Fields Attn: [address] [place], [address], [place] [facility] 10/25/2015 10:38:02 02/09/20 15 Control Implant Insertion completed Myke Rosales DO Attn: [address] [place], [address], [place] [facility] 02/08/2015 16:23:25 03/25/19 14 Tonsillectomy completed JOSÉ Fields Attn: [address] [place], [address], [facility] - [facility] 05/21/2014 10:51:17 Imaging Results Imaging Date Name Status LastModified by Organiz ation Details LastModified Time 05/29/2021 CT ABD+pel W con completed [address], [address], 05/29/2021 09:20:06 05/29/2021 CT ABD+pel W con completed [address], [address], 05/29/2021 09:20:06 05/29/2021 XR, chest completed [address], [place], [address], 05/29/2021 09:20:07 05/29/2021 ECG 12-lead completed [address], [place], [address], 05/29/2021 12:19:37 05/29/2021 ECG 12-lead completed [address], [place], [address], 05/29/2021 12:19:37 08/15/2021 CT ABD+pel W con completed [address], [place], [address], 08/15/2021 09:15:17 08/15/2021 ECG 12-lead completed [address], [place], [address], 08/15/2021 15:38:43 08/15/2021 ECG 12-lead completed [address], [address], 08/15/2021 15:38:43 07/20/2022 ECG 12-lead completed [address], [address], 07/23/2022 09:02:48 07/20/2022 ECG 12-lead completed [place] [address] [facility], [place], [address], 07/23/2022 09:02:49 Procedure Notes None recorded. Medical Equipment None Reported. Allergies Allergen ID Allergen Name Allergen Category Reaction Reaction Severity Criticality Documentation Date Start Date Code Code System Note Provider Name and Address Organization Details Recorded Time 12596 shellfish derived food,medi cation hives Not available Not available 05/21/2014 37051 UNK Not Available Not Available Not Available 59463 Aloe vera preparati on food,medi cation Not available Not available Not available 05/21/2014 71153 0 RxNorm Not Available Not Available Not Available Medications Name Sig Start Date Stop Date Status Note LastModified by Organization Details LastModified Time cyclobenz aprine 10 mg tablet 05/24 completed Not Available Not Available Not Available amoxicill in 500 mg capsule 12/24 completed Not Available Not Available Not Available prednison e 10 mg tablet active Not Available Not Available Not Available clindamyc in HCl 300 mg capsule 06/14 completed Not Available Not Available Not Available cetirizin e 10 mg tablet Take 1 tablet every day by oral route. 02/23 completed Not Available Not Available Not Available ibuprofen 800 mg tablet 05/24 completed Not Available Not Available Not Available clarithro mycin 500 mg tablet 12/24 completed Not Available Not Available Not Available hydrocodo ne 5 mg-acetam inophen 325 mg tablet 02/23 completed Not Available Not Available Not Available epinephri ne (Jr) 0.15 mg/0.3 mL injection ,auto-inj harish Take 1 auto as needed by injectio n route as directed . 05/24 completed Not Available Not Available Not Available prednison e 20 mg tablet TAKE 1 TABLET BY MOUTH DAILY FOR 5 DAYS 08/11 completed Not Available Not Available Not Available medroxypr ogesteron e 5 mg tablet Take 1 tablet every day by oral route in the morning for 5 days. 12/24 completed Not Available Not Available Not Available prochlorp erazine maleate 10 mg tablet TAKE 1 TABLET (10 MG TOTAL) BY MOUTH TWICE A DAY NEEDED FOR NAUSEA AND VOMITING active Not Available Not Available No t Available sulfameth oxazole 800 mg-trimet hoprim 160 mg tablet TAKE 1 TABLET BY MOUTH EVERY 12 HOURS FOR 5 DAYS active Not Available Not Available No t Available tramadol 50 mg tablet active Not Available Not Available Not Available amoxicill in 875 mg tablet TAKE 1 TABLET BY MOUTH 2 TIMES A DAY FOR 14 DAYS. 08/11 completed Not Available Not Available Not Available dicyclomi ne 20 mg tablet TAKE 1 TABLET BY MOUTH TWICE A DAY active Not Available Not Available No t Available cephalexi n 500 mg capsule TAKE 1 CAPSULE BY MOUTH FOUR TIMES DAILY FOR 14 DAYS 11/07 completed Not Available Not Available Not Available ibuprofen 400 mg tablet Take 1 tablet twice a day by oral route for 14 days. 07/22 completed Not Available Not Available Not Available lidocaine HCl 2 % mucosal solution APPLY 10 ML TO THE MOUTH OR THROAT 3 TIMES A DAY NEEDED (FOR MOUTH/DE NTAL PAIN) (SWISH & SPIT) 08/14 completed Not Available Not Available Not Available omeprazol e 20 mg capsule,d elayed release 03/04 completed Not Available Not Available Not Available monteluka st 10 mg tablet Take 1 tablet every day by oral route at bedtime. 02/23 completed Not Available Not Available Not Available Prometheg an 25 mg rectal supposito ry PLEASE SEE ATTACHED FOR DETAILED DIRECTIO NS active Not Available Not Available No t Available epinephri ne 0.3 mg/0.3 mL injection , auto-inje ctor INJECT NEEDED active Not Available Not Available No t Available ibuprofen 600 mg tablet Take 1 tablet 3 times a day by oral route as needed for 7 days. 02/23 completed Not Available Not Available Not Available albuterol sulfate HFA 90 mcg/actua tion aerosol inhaler INHALE 2 PUFFS BY MOUTH EVERY 4 HOURS NEEDED appointm ent due 08/14 completed Not Available Not Available Not Available ondansetr on 4 mg disintegr ating tablet DISSOLVE 1 TABLET IN MOUTH EVERY 8 HOURS NEEDED FOR NAUSEA AND VOMITING active Not Available Not Available No t Available sertralin e 50 mg tablet TAKE 1 TABLET BY MOUTH EVERY DAY 08/14 completed Not Available Not Available Not Available medroxypr ogesteron e 150 mg/mL intramusc ular suspensio n Inject 1 mL by intramus cular route. 03/04 completed pt to RTO mar 13mar 28 Not Available Not Available Not Available loratadin e 10 mg tablet TAKE 1 TABLET BY MOUTH EVERY DAY 03/04 completed Not Available Not Available Not Available naproxen 500 mg tablet TAKE 1 TABLET BY MOUTH TWICE A DAY WITH MEALS 08/14 completed Not Available Not Available Not Available metoclopr amide 10 mg tablet TAKE 1 TABLET BY MOUTH EVERY 6 HOURS NEEDED 02/23 completed Not Available Not Available Not Available amoxicill in 875 mg-potass ium clavulana te 125 mg tablet TAKE 1 TABLET BY MOUTH EVERY 12 HOURS 08/11 completed Not Available Not Available Not Available Depo-Prov era 150 mg/mL intramusc ular syringe Inject 1 mL every 3 months by intramus cular route. 12/24 completed Pt to return to office Mar 11Apr 04 Not Available Not Available Not Available escitalop sheila 10 mg tablet TAKE 1 TABLET BY MOUTH ONCE DAILY FOR ANXIETY active Not Available Not Available No t Available cyclobenz aprine 5 mg tablet Take 1 tablet 3 times a day by oral route as needed for 7 days. 07/22 completed Not Available Not Available Not Available 04/13 (28) 1 mg-20 mcg (21)/75 mg (7) tablet 07/22 completed Not Available Not Available Not Available mirtazapi ne 7.5 mg tablet Take 1 tablet every day by oral route at bedtime. 05/24 completed Not Available Not Available Not Available nitrofura ntoin monohydra te/macroc rystals 100 mg capsule 07/22 completed Not Available Not Available Not Available Flovent HFA 44 mcg/actua tion aerosol inhaler Inhale 2 puffs twice a day by inhalati on route. 09/30 completed Not Available Not Available Not Available Flovent HFA 110 mcg/actua tion aerosol inhaler TAKE 1 PUFF BY MOUTH TWICE A DAY 02/23 completed appt due 03/2020 Not Available Not Available Not Available chlorhexi dine gluconate 0.12 % mouthwash SWISH 15ML IN MOUTH THEN SPIT OUT TWICE A DAY 08/14 completed Not Available Not Available Not Available prednison e 10mg PRN shortnes s of breath 06/06 completed Not Available Not Available Not Available loratadin e 5 mg chewable tablet Take 1 tablet every day by oral route. active Not Available Not Available No t Available Nexplanon 68 mg subdermal implant 10/24 completed patient did not like device Not Available Not Available Not Available 28 mg iron-800 mcg tablet TAKE 1 TABLET BY MOUTH ONCE DAILY 08/14 completed Not Available Not Available Not Available Vitals Date Recorded Body height Body mass index (BMI) Body weight Body temperature Heart rate Oxygen saturation Oxygen saturation in Arterial blood by Pulse oximetry Systolic blood pressure Diastolic blood pressure Provider Name and Address Organization Details Last Updated DateTime 1 162.56 cm 17 kg/m2 89955.2 9 g 97.8 [degF] 118 /min 98 % 98 % 118 mm[Hg] 60 mm[Hg] [facility] 1 15:22:48 Date Recorded Body height Provider Name an d Address Organization Details Last Updated DateTime 04/13/2021 162.56 cm [facility] 2 10:53:58 Date Recorded Body height Body mass index (BMI) Body weight Body temperature Heart rate Oxygen saturation Oxygen saturation in Arterial blood by Pulse oximetry Systolic blood pressure Diastolic blood pressure Provider Name and Address Organization Details Last Updated DateTime 2 162.56 cm 17.1 kg/m2 08908.5 2 g 97.4 [degF] 70 /min 97 % 97 % 114 mm[Hg] 68 mm[Hg] [facility] 2 16:05:53 Date Recorded Body height Body mass index (BMI) Body weight Body temperature Heart rate Oxygen saturation Oxygen saturation in Arterial blood by Pulse oximetry Systolic blood pressure Diastolic blood pressure Provider Name and Address Organization Details Last Updated DateTime 3 162.56 cm 15.8 kg/m2 78898.5 g 98.2 [degF] 103 /min 97 % 97 % 97 mm[Hg] 63 mm[Hg] [facility] 3 14:16:50 Date Recorded Body temperature Body height Heart rate Oxygen saturation Oxygen saturation in Arterial blood by Pulse oximetry Body mass index (BMI) Body weight Systolic blood pressure Diastolic blood pressure Provider Name and Address Organization Details Last Updated DateTime 4 98.7 [degF] 162.56 cm 91 /min 97 % 97 % 15.8 kg/m2 81754.5 g 112 mm[Hg] 79 mm[Hg] Silvia Posada MA [place] - [facility] 4 10:16:44 Social History Question Answer Notes LastModified by Organizat ion Details LastModified Time Tobacco Smoking Status Never Smoker Sergio Lyn MA null, [place] - [facility] 05/21/2014 10:30:25 What Is Your Level Of Alcohol Consumption? None [email or web address] Information not available 07/16/2014 Is Blood Transfusion Acceptable In An Emergency? Yes [email or web address] Information not available 01/18/2015 What Is Your Level Of Caffeine Consumption? Moderate Information not available 10/22/2014 How Much Tobacco Do You Chew? None Information not available 10/22/2014 Are You Currently Employed? Yes Information not available 10/22/2014 What Type Of Diet Are You Following? REGULAR [email or web address] Information not available 01/18/2015 Which Illicit Or Recreational Drugs Have You Used? [place] [email or web address] Information not available 02/11/2017 Do You Or Have You Ever Used E-cigarettes Or Vape? Never Used Electronic Cigarettes Information not available 09/02/2019 Education 12 High School Graduate Information not available 08/07/2017 What Is Your Occupation? [employer] Information not available 08/07/2017 Live Alone Or With Others? With Others Information not available 10/22/2014 What Was The Date Of Your Most Recent Tobacco Screening? 08/15/2023 Information not available 08/15/2023 How Many Children Do You Have? 0 Information not available 01/18/2015 Performs Monthly Self-breast Exam? No [email or web address] Information not available 10/22/2014 Do You Use Protection During Sex? Usually Information not available 08/07/2017 What Is Your Relationship Status? Single Information not available 01/18/2015 Seat Belts Used Routinely Yes [email or web address] Information not available 10/22/2014 Are You Sexually Active? Yes [email or web address] Information not available 01/18/2015 Do You Or Have You Ever Used Smokeless Tobacco? Never Used Smokeless Tobacco Information not available 09/02/2019 How Much Tobacco Do You Smoke? No Information not available 10/22/2014 General Stress Level Low [email or web address] Information not available 01/18/2015 Do You Use Any Illicit Or Recreational Drugs? Yes Marijuana Use. [email or web address] Information not available 06/06/2021 Do You Use Sunscreen Routinely? No [email or web address] Information not available 10/22/2014 How Many Years Have You Smoked Tobacco? 0 [email or web address] Information not available 10/22/2014 Do You Or Have You Ever Used Any Other Forms Of Tobacco Or Nicotine? No Information not available 08/15/2023 Sex: Unknown Functional Status Question Answer Note LastModified by Organization D etails LastModified Time What is your exercise level? None [email or web address] Information not available 10/22/2014 Mental Status None recorded. Family History Relationship Description Onset Age of this Age Resolved Age Notes LastModified by Organization Details LastModified Time Maternal Grandmother Hypertensive disorder 28 [email or web address] Not available 10/20 16:51:27 Maternal Grandmother Cerebrovascu lar accident 61 [email or web address] Not available 16:51:27 Maternal Grandfather Diabetes mellitus [email or web address] Not available 10/20 16:51:27 Medical History Condition Response Heart Problems N Other N Breast Cancer N Thyroid Problems N Kidney or Bladder Problems N GI Problems N Lung Disease N Depression N Acne N Breast Problem N Eating Disorder N Anemia N Anesthesia Complications N Headaches/Migraines N Anxiety Disorder N Diabetes N Ovarian Cancer N Blood Transfusions N Arthritis N Polyps N Infertility N Acid Reflux (GERD) N Cancer N Stroke N Abuse/Domestic Violence N Asthma Y Endometriosis N High Cholesterol N Hepatitis N Heart Disease N Fibromyalgia N Pre-Eclampsia N Hypertension N Osteoporosis N Kidney Disease N Gynecological History Statement/Question Response Abnormal Pap Flow Heavy STIs/STDs N HPV Vaccine Y Age at Menarche 15 Current Control Method None If Post Menopausal, Age at Menopause Sexually Active? Y Menses Monthly Y Date of Last Pap Smear Sexual Problems? N LMP Approximate Desired Control Method Withdrawal Obstetrics History GPAL:G 0 P 0 0 0 0 Type Value Multiple Births 0 Full Term 0 Induced 0 Spontaneous 0 Premature 0 Living 0 Ectopics 0 Total 0 Immunizations Vaccine Type Date Status Note Provider Nam e and Address Organization Details Recorded Time meningococcal MCV4P 6 completed Not Available [facility] 04/11/2019 02:47:56 HPV, quadrivalent 5 completed Not Available [facility] 04/11/2019 02:40:59 COVID-19, mRNA, LNP-S, PF, 100 mcg/0.5mL dose or 50 mcg/0.25mL dose 1 completed Silvia Posada MA null, [place] - [facility] 02/23/2021 16:05:00 DTaP, unspecified formulation 0 completed Not Available [facility] 04/16/2023 16:35:20 DTaP, unspecified formulation 0 completed Not Available [facility] 04/16/2023 16:35:20 DTaP, unspecified formulation 0 completed Not Available [facility] 04/16/2023 16:35:20 DTaP, unspecified formulation 1 completed Not Available [facility] 04/16/2023 16:35:20 DTaP, unspecified formulation 4 completed Not Available [facility] 04/16/2023 16:35:20 Tdap 0 completed Not Available [facility] 04/16/2023 16:35:20 IPV 0 completed Not Available [facility] 04/16/2023 16:35:20 IPV 0 completed Not Available [facility] 04/16/2023 16:35:20 IPV 1 completed Not Available [facility] 04/16/2023 16:35:20 IPV 3 completed Not Available [facility] 04/16/2023 16:35:20 IPV 4 completed Not Available [facility] 04/16/2023 16:35:20 Hib, unspecified formulation 0 completed Not Available [facility] 04/16/2023 16:35:19 Hib, unspecified formulation 0 completed Not Available [facility] 04/16/2023 16:35:19 Hib, unspecified formulation 0 completed Not Available [facility] 04/16/2023 16:35:19 Hib, unspecified formulation 1 completed Not Available [facility] 04/16/2023 16:35:19 Pneumococcal conjugate PCV 13 0 completed Not Available [facility] 04/16/2023 16:35:20 Pneumococcal conjugate PCV 13 1 completed Not Available [facility] 04/16/2023 16:35:20 Hep B, adolescent or pediatric 9 completed Not Available [facility] 04/16/2023 16:35:20 Hep B, adolescent or pediatric 0 completed Not Available [facility] 04/16/2023 16:35:20 Hep B, adolescent or pediatric 0 completed Not Available [facility] 04/16/2023 16:35:20 MMR 0 completed Not Available [facility] 04/16/2023 16:35:20 MMR 3 completed Not Available [facility] 04/16/2023 16:35:20 MMR 4 completed Not Available [facility] 04/16/2023 16:35:20 varicella 0 completed Not Available [facility] 04/16/2023 16:35:20 varicella 9 completed Not Available [facility] 04/16/2023 16:35:20 Hep A, ped/adol, 2 dose 2 completed Not Available [facility] 04/16/2023 16:35:20 Hep A, ped/adol, 2 dose 7 completed Not Available [facility] 04/16/2023 16:35:20 Hep A, ped/adol, 2 dose 8 completed Not Available [facility] 04/16/2023 16:35:20 HPV, unspecified formulation 0 completed Not Available [facility] 04/16/2023 16:35:20 HPV, unspecified formulation 1 completed Not Available [facility] 04/16/2023 16:35:20 Past Encounters Encounter ID Performer Location Encounter Start Date Encounter Closed Date Diagnosis/Indication Diagnosis SNOMED-CT Code Diagnosis ICD10 Code Diagnosis Note [id number] [facility] ([facility]) [address] [place] [address] 05/21/2014 10:13:26 05/21/2014 15:14:18 Allergic reaction to food 472300272 Will draw allergy panel to determine need for EpiPen. Should avoid seafood until results are available. [id number] [facility] ([facility]) [address] [facility] [place] [address] 07/16/2014 15:18:18 07/19/2014 09:57:48 Knee pain 06452494 Will have her switch to Motrin and Tylenol as needed. Due to limitation s with ROM, will send for MRI to rule out tear vs rupture. [id number] Robert Voss, [employer] [facility] ([facility]) [address] [place] [address], [place] [address] 10/06/2014 09:52:50 10/07/2014 03:45:58 Well child 542237752 Jay is doing well today. We will update her immunizati ons. She is going to run track and try out for cheerleadi ng so a sports physical form will also be completed today. Anticipato ry guidance discussed, recommende d a multivitam in daily since she does not like to eat meat. Seasonal a llergic rhinitis [id number] [facility] ([facility]) [address] [place] [address] 10/22/2014 14:32:24 10/23/2014 23:24:08 Venereal disease screening 917686139 [id number] Amairani Galloway [facility] ([facility] [facility]) [address] [place] [address] 01/18/2015 11:25:12 01/19/2015 09:33:39 Contraception care management 880063414 Z30.9 [id number] Paloma Sanches [facility] ([facility] [employer]) [address] [place] [address] 02/08/2015 15:09:17 02/09/2015 11:33:01 Contraception care 994296552 Z30.40 [id number] Paloma Sanches [facility] ([employer] [employer] [facility]) [address] [place] [address] 02/23/2015 12:26:08 02/28/2015 11:27:29 Contraception care management 408167844 Z30.9 [id number] Paloma Sanches [facility] ([facility] [employer]) [address] [place] [address] 07/05/2015 09:48:44 07/12/2015 16:38:22 Contraception care 463143976 Z30.40 [id number] JOSÉ Fields [facility] ([facility]) [address] [place] [address] 10/21/2015 16:40:02 10/24/2015 13:00:30 Well child 313122455 Z00.129 Jay is doing well today. We will update her immunizati ons. Anticipato ry guidance discussed, recommende d a multivitam in daily since she does not like to eat meat. Contracept ion care management 076781299 Z30.9 Does not like her implant. Would like to get it removed and would like to start Depo. [id number] JOS[facility] ([facility]) [address] [place] [address] 10/25/2015 09:44:22 10/26/2015 10:06:34 Contraception care 447847406 Z30.40 Nexplanon removed, see procedure note, no complicati ons. Wishes to start Depo today, urine negative. Other options of contracept alexandra discussed (eg implanon/n explanon/I UD/OCPs/Pa tches/ring s); stated not interested at the time of the encounter. Advised w/ Depo contracept ion can increase risk of Osteoperos is thus take Ca w/ Vit D supplement ation Advised must get every 3months within window period or can possibilit y get . Advised does not protect from STD & to use condoms [id number] JOSÉ Fields [facility] ([facility]) [address] [place] [address] 01/04/2016 11:09:17 01/05/2016 10:23:46 Contraception care [id number] Z30.42 Depo today. Other options of contracept alexandra discussed (eg implanon/n explanon/I UD/OCPs/Pa tches/ring s); stated not interested at the time of the encounter. Advised w/ Depo contracept ion can increase risk of Osteoperos is thus take Ca w/ Vit D supplement ation Advised must get every 3months within window period or can possibilit y get . Advised does not protect from STD & to use condoms [id number] JOSÉ Fields [facility] ([facility]) [address] [facility] [place] [address] 03/29/2016 09:03:54 03/30/2016 09:41:36 Contraception care [id number] Z30.42 Depo today. Other options of contracept alexandra discussed (eg implanon/n explanon/I UD/OCPs/Pa tches/ring s); stated not interested at the time of the encounter. Advised w/ Depo contracept ion can increase risk of Osteoperos is thus take Ca w/ Vit D supplement ation Advised must get every 3months within window period or can possibilit y get . Advised does not protect from STD & to use condoms [id number] Arron Matta PA-C [facility] ([facility]) [address] [facility] [place] [address] 06/22/2016 14:31:00 06/25/2016 10:22:46 Contraception care management [id number] Z30.9 Due for Depo today. Other options of contracept alexandra discussed (eg implanon/n explanon/I UD/OCPs/Pa tches/ring s); stated not interested at the time of the encounter. Advised w/ Depo contracept ion can increase risk of osteoporos is thus take Ca w/ Vit D supplement ation Advised must get every 3 months within window period or can possibilit y get . Advised does not protect from STD & to use condoms Contraception care 48301 5005 Z30.42 [id number] JOSÉ Fields [facility] ([facility]) [address] [place] [address] 06/27/2016 10:49:43 06/28/2016 16:46:07 Corneal abrasion 04906688 S05.02XD Encouraged lubricatin g eye drops to keep eye moisturize d. Should be seen by ophthalmol ogist if blurry vision does not resolve in the next 48 hours. Thoracic back pain [id number] 8004 M54.6 encouraged heat and ice to area. Has Ibuprofen at home for pain control. Will refer to PT if pain is not better in 3-5 days. [id number] JOSÉ Fields [facility] ([facility]) [address] [place] [address] 09/28/2016 10:25:49 10/01/2016 10:23:25 Contraception care [id number] Z30.42 Depo today. Other options of contracept alexandra discussed (eg implanon/n explanon/I UD/OCPs/Pa tches/ring s); stated not interested at the time of the encounter. Advised w/ Depo contracept ion can increase risk of Osteoperos is thus take Ca w/ Vit D supplement ation Advised must get every 3months within window period or can possibilit y get . Advised does not protect from STD & to use condoms [id number] JOSÉ Fields [facility] ([facility]) [address] [place] [address] 10/12/2016 11:30:33 10/16/2016 09:34:17 Dysfunctional uterine bleeding 11376771 N93.8 Will start Provera. If she wishes to change control method should return to office before she would be due for her next Depo. Discussed that missing doses of pills would cause irregular bleeding. [id number] JOSÉ Fields [facility] ([facility]) [address] [place] [address] 12/26/2016 09:24:51 12/27/2016 12:45:10 Contraception care 054887370 Z30.40 Depo injection today. RTC in 3 months for next injection. Counseled today on calcium supplement and light aerobic exercise for bone health. Reminded that Depo does not protect against STIs. [id number] JOSÉ ESCOBAR [facility] ([facility]) [address] [place] [address] 02/11/2017 15:30:25 02/12/2017 10:02:17 Dysfunctional uterine bleeding 52801705 N93.8 check US, cbc and tsh. advised mom to follow up with supervisor spring up after US complete for further recs. [id number] [facility] ([facility]) [address] [place] [address] 03/04/2017 15:54:31 03/06/2017 13:49:41 Well child 949145971 Z00.129 Jay is doing well today.Immu nizations are up to date.. Anticipato ry guidance discussed, recommende d a multivitam in daily since she does not like to eat meat. Diet education 21696952 Z71.3 Examinatio n for other specified condition 468658872 Z02.5 [id number] [facility] ([facility]) [address] [place] [address] 09/04/2017 15:10:01 09/05/2017 10:48:08 Abnormal vaginal bleeding 110051947 N93.9 [id number] J[facility] ([facility]) [address] [place] [address] 02/24/2018 15:28:41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
--- OUTSIDE RECORDS SUMMARY | 2024-05-26 14:30 | XMS_ITS | Referral Summary ---
Author Organization [facility] Address [address] [place] [address] Care Team Providers Care Narcotics Agent Name Role Phone Giselle Zhong NP Primary Care Provider [phone] Giselle Zhong NP Unavailable [phone] Allergies Active Allergy Reactions Criticality Noted Date [...] on file Legal Sex Female 3:03 AM A/C TECHNICIAN Gender Identity Not on file Sexual Orientation Not on file Last Filed Vital Signs Vital Sign Reading Time Taken Comments Blood Pressure 104/85 02/11/2024 5:44 AM A/C TECHNICIAN Pulse 75 02/11/2024 5:44 AM A/C TECHNICIAN Temperature 36.3 C (97.4 F) 02/11/2024 5:44 AM A/C TECHNICIAN Respiratory Rate 18 02/11/2024 5:44 AM A/C TECHNICIAN Oxygen Saturation 100% 02/11/2024 5:44 AM A/C TECHNICIAN Inhaled Oxygen Concentration - - Weight 49.9 kg (110 lb) 02/11/2024 5:44 AM A/C TECHNICIAN Height 162.6 cm (5' 4 ) 02/11/2024 5:44 AM A/C TECHNICIAN Body Mass Index 18.88 02/11/2024 5:44 AM A/C TECHNICIAN Plan of Treatment Not on file Insurance [facility] Care Teams Narcotics Agent Relationship Specialty Start Date End Date Giselle Zhong NP PCP - General Nurse Practitioner 12/12/20 Giselle Zhong NP 12/12/20
--- OUTSIDE RECORDS SUMMARY | 2024-05-26 14:30 | XMS_ITS | Clinical Summary ---
Author Organization [facility] Address [address] [place] [address] Care Team Providers Care Button Maker Name Role Phone Giselle Zhong NP Primary Care Provider [phone] Giselle Zhong NP Unavailable [phone] Allergies Active Allergy Reactions Criticality Noted [...] on file Legal Sex Female 3:03 AM SURVEILLANCE SYSTEMS ANALYST Gender Identity Not on file Sexual Orientation Not on file Obstetrics History Last Filed Vital Signs Vital Sign Reading Time Taken Comments Blood Pressure 104/85 02/11/2024 5:44 AM SURVEILLANCE SYSTEMS ANALYST Pulse 75 02/11/2024 5:44 AM SURVEILLANCE SYSTEMS ANALYST Temperature 36.3 C (97.4 F) 02/11/2024 5:44 AM SURVEILLANCE SYSTEMS ANALYST Respiratory Rate 18 02/11/2024 5:44 AM SURVEILLANCE SYSTEMS ANALYST Oxygen Saturation 100% 02/11/2024 5:44 AM SURVEILLANCE SYSTEMS ANALYST Inhaled Oxygen Concentration - - Weight 49.9 kg (110 lb) 02/11/2024 5:44 AM SURVEILLANCE SYSTEMS ANALYST Height 162.6 cm (5' 4 ) 02/11/2024 5:44 AM SURVEILLANCE SYSTEMS ANALYST Body Mass Index 18.88 02/11/2024 5:44 AM SURVEILLANCE SYSTEMS ANALYST Plan of Treatment Health Maintenance Due Date [...] 02/23, 2010 Covid-19 Vaccine Discontinued 02/23/2021 Insurance [facility] Care Teams Button Maker Relationship Specialty Start Date End Date Giselle Zhong NP PCP - General Nurse Practitioner 12/12/20 Giselle Zhong NP 12/12/20
== END 2024-05-26 13:25 | disposition home or self-care (01) ==
LOC: ANHED 12:52
PROVIDERS: Emergency Provider Emergency Medicine
DX: K04.7 Periapical abscess without sinus (principal); K02.9 Dental caries, unspecified
CPT/HCPCS: 96372; 99283; A9270; J1885

== ENCOUNTER 2024-05-27 13:22 | Emergency (ER) | payer OTHER, SELFPAY ==
[2024-05-27 13:26] VITALS: BP 93/55; PULSE 99; RESP 16; TEMP 36.4; O2SAT 100
--- OUTSIDE RECORDS SUMMARY | 2024-05-27 14:48 | XMS_ITS | Referral Summary ---
Author Organization [facility] Address [address] [place] [address] Care Team Providers Care Back Tender Name Role Phone Giselle Zhong NP Primary Care Provider [phone] Giselle Zhong NP Unavailable [phone] Allergies Active Allergy Reactions Criticality Noted Date [...] on file Legal Sex Female 3:03 AM PELLETISING EXTRUDER OPERATOR Gender Identity Not on file Sexual Orientation Not on file Last Filed Vital Signs Vital Sign Reading Time Taken Comments Blood Pressure 104/85 02/11/2024 5:44 AM PELLETISING EXTRUDER OPERATOR Pulse 75 02/11/2024 5:44 AM PELLETISING EXTRUDER OPERATOR Temperature 36.3 C (97.4 F) 02/11/2024 5:44 AM PELLETISING EXTRUDER OPERATOR Respiratory Rate 18 02/11/2024 5:44 AM PELLETISING EXTRUDER OPERATOR Oxygen Saturation 100% 02/11/2024 5:44 AM PELLETISING EXTRUDER OPERATOR Inhaled Oxygen Concentration - - Weight 49.9 kg (110 lb) 02/11/2024 5:44 AM PELLETISING EXTRUDER OPERATOR Height 162.6 cm (5' 4 ) 02/11/2024 5:44 AM PELLETISING EXTRUDER OPERATOR Body Mass Index 18.88 02/11/2024 5:44 AM PELLETISING EXTRUDER OPERATOR Plan of Treatment Not on file Insurance [facility] Care Teams Back Tender Relationship Specialty Start Date End Date Giselle Zhong NP PCP - General Nurse Practitioner 12/12/20 Giselle Zhong NP 12/12/20
--- OUTSIDE RECORDS SUMMARY | 2024-05-27 14:48 | XMS_ITS | Clinical Summary ---
Author Organization [facility] Address [address] [place] [address] Care Team Providers Care Police Patrol Officer Name Role Phone Giselle Zhong NP Primary Care Provider [phone] Giselle Zhong NP Unavailable [phone] Allergies Active Allergy Reactions Criticality Noted Date [...] on file Legal Sex Female 3:03 AM JUNIOR ACCOUNT MANAGER Gender Identity Not on file Sexual Orientation Not on file Obstetrics History Last Filed Vital Signs Vital Sign Reading Time Taken Comments Blood Pressure 104/85 02/11/2024 5:44 AM JUNIOR ACCOUNT MANAGER Pulse 75 02/11/2024 5:44 AM JUNIOR ACCOUNT MANAGER Temperature 36.3 C (97.4 F) 02/11/2024 5:44 AM JUNIOR ACCOUNT MANAGER Respiratory Rate 18 02/11/2024 5:44 AM JUNIOR ACCOUNT MANAGER Oxygen Saturation 100% 02/11/2024 5:44 AM JUNIOR ACCOUNT MANAGER Inhaled Oxygen Concentration - - Weight 49.9 kg (110 lb) 02/11/2024 5:44 AM JUNIOR ACCOUNT MANAGER Height 162.6 cm (5' 4 ) 02/11/2024 5:44 AM JUNIOR ACCOUNT MANAGER Body Mass Index 18.88 02/11/2024 5:44 AM JUNIOR ACCOUNT MANAGER Plan of Treatment Health Maintenance Due Date [...] 02/23, 2010 Covid-19 Vaccine Discontinued 02/23/2021 Insurance [facility] Care Teams Police Patrol Officer Relationship Specialty Start Date End Date Giselle Zhong NP PCP - General Nurse Practitioner 12/12/20 Giselle Zhong NP 12/12/20
--- OUTSIDE RECORDS SUMMARY | 2024-05-27 14:49 | XMS_ITS | Data Portability ---
Author Organization KAYLI YOLYJaylon Brito Address [address] [facility] [place] [address] Care Team Providers Care Fiber Optics Technician Name Role Phone ROBERT VOSS Primary Care Provider Assessment No assessment recorded. Plan of Treatment Reminders Order Date Submit Date Provider Last Modified By Organization Details Last Modified Time Details Appointments None recorded. Lab CMP, serum or plasma 2023 024 [facility], [address] [place], [place] [address], [address], [place], [address], 4 11:13:43 CBC w/ auto diff 2023 024 [facility], [address] [place], [place] [address], [address], [place], [address], 4 11:13:57 TSH + free T4, serum 2023 024 [facility], [address] [place] [address], [address], [place], [address], 4 11:14:22 vitamin D, 25-hydroxy, total, serum 2023 024 [facility], [address] [facility], [address], [place], [address], 4 11:14:34 iron + total iron-bindin g capacity (TIBC), serum 2023 024 [facility], [address] [facility], [address], [place], [address], 4 11:14:59 HIV 1 + 2, meaningful use set 2023 024 [facility], [address] [place] [address], [address], [place], [address], 4 11:15:13 CBC w/ auto diff 2022 023 [facility], [address] [place] [address], [address], [place], [address], 3 10:14:31 cytology report, thin prep, smear or scraping, cervical or vaginal 2021 022 [facility], [address] [place] [address], [address], [place], [address], 2 13:10:40 Referral None recorded. Procedures None recorded. Surgeries None recorded. Imaging None recorded. Medication Orders escitalopra m 10 mg tablet 2023 024 [facility], [address] [place], [address], 4 10:47:55 sertraline 50 mg tablet 2021 022 [facility][id number], [address] [place], [address], 4 10:41:16 28 mg iron-800 mcg tablet 2021 022 [facility] #[id number], [address] [place], [address], 4 10:41:32 Patient TargetsNo targets recorded. Patient Instructions Encounter Date Encounter Id Patient Instructions Last Modified By Organization Details Last Modified Time 04/13/2021 [id number] A healthy lifestyle: care instructions taylor Not available 06/01/2021 15:11:23 06/06/2021 [id number] A healthy lifestyle: care instructions taylor Not available 06/06/2021 22:29:28 07/24/2022 [id number] A healthy lifestyle: care instructions [facility] Not available 08/21/2022 07:13:50 Reason for Referral None Reported. Results Created Date Observation Date Name Description Value Unit Range Abnormal Flag Note LastModifiedBy Organization Detail LastModifiedTime 04/13/1904/15/2021 IGP,C TNGTV ,RFX APTIM A HPV ASCU chlamydia, nuc. acid amp Negati ve negati ve Not Available [facility] ([facility]) [address] [place], [address], 04/17/2021 13:10:40 04/13/19 22 04/15/2021 IGP,C TNGTV ,RFX APTIM A HPV ASCU gonococcus, nuc. acid amp Negati ve negati ve Not Available [facility] ([facility]) [address] [place], [address], 04/17/2021 13:10:40 04/13/19 22 04/15/2021 IGP,C TNGTV ,RFX APTIM A HPV ASCU trich vag by BENY Negati ve negati ve Not Available [facility] ([facility]) [address] [place], [address], 04/17/2021 13:10:40 04/13/19 22 04/17/2021 IGP,C TNGTV ,RFX APTIM A HPV ASCU diagnosis: Commen t NEGAT SAVI FOR INTRA EPITH ELIAL LESIO N OR MALKILEY ASUNCION . Not Available [facility] ([facility]) [address] [place], [address], 04/17/2021 13:10:40 04/13/19 22 04/17/2021 IGP,C TNGTV ,RFX APTIM A HPV ASCU specimen adequacy: Yevgeniy perez Satis facto ry for evalu ation . Endoc ervic al and/o r squam ous metap lasti c cells (endo cervi farhad compo nent) are prese nt. Not Available [facility] ([facility]) [address] [place], [address], 04/17/2021 13:10:40 04/13/19 22 04/17/2021 IGP,C TNGTV ,RFX APTIM A HPV ASCU clinician provided ICD10: Yevgeniy perez Z01.4 19 Not Available [facility] ([facility]) [address] [place], [address], 04/17/2021 13:10:40 04/13/19 22 04/17/2021 IGP,C TNGTV ,RFX APTIM A HPV ASCU performed by: Annie Ayala rd (ASCP ) Not Available [facility] ([facility]) [address] [place], [address], 04/17/2021 13:10:40 04/13/19 22 04/17/2021 IGP,C TNGTV ,RFX APTIM A HPV ASCU . . Not Available [facility] ([facility]) [address] [place], [address], 04/17/2021 13:10:40 04/13/19 22 04/17/2021 IGP,C TNGTV [...] ts do occur . Not Available [facility] ([facility]) [address] [facility], [place], [address], 04/17/2021 13:10:40 04/13/19 22 04/17/2021 IGP,C TNGTV ,RFX APTIM A HPV ASCU test methodology: Commen t This liqui d based ThinP rep(R ) pap test was kevin collins with the use of an image guide carlyn systkalin may. Not Available [facility] ([facility]) [address] [facility], [place], [address], 04/17/2021 13:10:40 04/13/19 22 04/17/2021 IGP,C TNGTV ,RFX APTIM A HPV ASCU . Commen t The HPV DNA refle x crite tavia were not met with this speci men resul t there fore, no HPV testi ng was perfo rmed. Not Available [facility] ([facility]) [address] [facility], [place], [address], 04/17/2021 13:10:40 08/15/19 22 08/14/2021 URINE CULTU RE [facility] [place] [address] Patie nt:AMBIKA CARLOS MP 6955 Med Rec#: [id number] Order ing MD: DOV RAMOS : [birth year] Sex: F Locat ion: SEOER Test: URINE CULTU RE Colle ct Date: 08-14 23:53 Acces santiago #: [id number] Not Available [facility] (Lab) One [facility], [place], [address], 08/16/2021 10:54:51 08/15/19 22 08/15/2021 URINE CULTU [...] STATU S - FINAL 08/16 Not Available [facility] (Lab) One [facility], [place], [address], 08/16/2021 10:54:51 08/16/19 22 08/14/2021 BLOOD CULTU RE blood culture SPECI MEN DESCR IPTIO N - BLOOD SPECI AL REQUE STS - NO SPECI AL REQUE ST CULTU RE - NO GROWT H 5 DAYS REPOR T STATU S - FINAL 08/20 Not Available [facility] (Lab) One [facility], [place], [address], 08/20/2021 11:42:31 08/16/19 22 08/15/2021 BLOOD CULTU RE header [facility] [place] [address] Patie nt:AMBIKA CARLOS MP [address] [facility] Rec#: [id number] Order ing MD: DOV RAMOS : [birth year] Sex: F Locat ion: SEOER Test: BLOOD CULTU RE Colle ct Date: 08-15 00:03 Acces santiago #: [id number] Not Available [facility] (Lab) [address], [place], [address], 08/20/2021 11:42:31 08/16/19 22 08/14/2021 BLOOD CULTU RE blood culture SPECI MEN DESCR IPTIO N - BLOOD SPECI AL REQUE STS - NO SPECI AL REQUE ST CULTU RE - NO GROWT H 5 DAYS REPOR T STATU S - FINAL 08/20 Not Available [facility] (Lab) One [facility], [place], [address], 08/20/2021 11:42:35 08/16/19 22 08/15/2021 BLOOD CULTU RE header [facility] [place] [address] Patie nt:BREANNA JEFFREY AMBIKA NOÉ COOPER 6955 Med Rec#: [id number] Order ing MD: DOV RAMOS : [birth year] Sex: F Locat ion: SEOER Test: BLOOD CULTU RE Colle ct Date: 08-15 00:03 Acces santiago #: [id number] Not Available [facility] (Lab) One [facility], [place], [address], 08/20/2021 11:42:35 07/20/19 23 07/19/2022 URINE CULTU RE header [facility] [place] [address] Patie nt:AMBIKA CARLOS MP 4899 Med Rec#: [id number] Order ricardo MD: SAMMI DOWELL : [birth year] Sex: F Locat ion: SEOER Test: URINE CULTU RE Colle ct Date: 07-19 21:41 Acces santiago #: [id number] Not Available [facility] (Lab) One [facility], [place], [address], 07/22/2022 08:38:38 07/20/19 23 07/19/2022 URINE CULTU RE urine culture SPECI MEN DESCR IPTIO N - URINE CLEAN CATCH SPECI AL REQUE STS - NO SPECI AL REQUE ST CULTU RE - MULTI PLE ORGAN ISMS PRESE NT, PROBA BLE CONTA MINAT ION. SUGGE ST REPEA T CULTU RE. REPOR T STATU S - FINAL 07/22 Not Available [facility] (Lab) One [facility], [place], [address], 07/22/2022 08:38:38 07/25/19 23 07/25/2022 CBC WITH DIFFE RENTI AL/PL ATELE T WBC 17.9 K/uL 3.4-10 .8 above high normal Not Available [facility] [address] [place], [address], 07/26/2022 10:14:31 07/25/19 23 07/25/2022 CBC WITH DIFFE RENTI AL/PL ATELE T RBC 5.4 M/uL 4.2-5. 4 Not Available [facility] [address] [place], [address], 07/26/2022 10:14:31 07/25/19 23 07/25/2022 CBC WITH DIFFE RENTI AL/PL ATELE T hemoglobin 14.3 g/dL 11.5-1 5.5 Not Available [facility] [address] [place], [address], 07/26/2022 10:14:31 07/25/19 23 07/25/2022 CBC WITH DIFFE RENTI AL/PL ATELE T hematocrit 45.7 % 36.0-4 8.0 Not Available [facility] [address] [place], [address], 07/26/2022 10:14:31 07/25/19 23 07/25/2022 CBC WITH DIFFE RENTI AL/PL ATELE T MCV 85 fL 80-95 Not Available [facility] [address] [place], [address], 07/26/2022 10:14:31 07/25/1907/25/2022 CBC WITH DIFFE RENTI AL/PL ATELE T MCH 27 pg 27-32 Not Available [facility] [address] [place], [address], 07/26/2022 10:14:31 07/25/19 23 07/25/2022 CBC WITH DIFFE RENTI AL/PL ATELE T MCHC 31 g/dL 32-36 below low normal Not Available [facility] [address] [place], [address], 07/26/2022 10:14:31 07/25/19 23 07/25/2022 CBC WITH DIFFE RENTI AL/PL ATELE T RDW 12.8 % 11.5-1 4.5 Not Available [facility] [address] [place], [address], 07/26/2022 10:14:31 07/25/19 23 07/25/2022 CBC WITH DIFFE RENTI AL/PL ATELE T platelets 400 K/uL 155-37 9 above high normal MPV 12.0 FL 8.9-1 2.7 N Not Available [facility] [address] [place], [address], 07/26/2022 10:14:31 07/25/19 23 07/25/2022 CBC WITH DIFFE RENTI AL/PL ATELE T NRBC 0 % Not Available [facility] [address] [place], [address], 07/26/2022 10:14:31 07/25/19 23 07/26/2022 MANUA L DIFFE RENTI AL neutrophils 51 % Not Available [facility] Department [address] [place], [address], 07/26/2022 10:14:30 07/25/19 23 07/26/2022 MANUA L DIFFE RENTI AL lymphs 37 % 14-46 Not Available [facility] [address] [place], [address], 07/26/2022 10:14:30 07/25/19 23 07/26/2022 MANUA L DIFFE RENTI AL monocytes 4 % Not Available [facility] Department [address] [place], [address], 07/26/2022 10:14:30 07/25/19 23 07/26/2022 MANUA L DIFFE RENTI AL eos 1 % Not Available [facility] [address] [place], [address], 07/26/2022 10:14:30 07/25/19 23 07/26/2022 MANUA L DIFFE RENTI AL differential comment Commen t BANDS , MANUA L 2 % N ATYPI FARHAD LYMPH S 5 % N IMMGR AN % N Not Available [facility] [address] [place], [address], 07/26/2022 10:14:30 07/25/19 23 07/26/2022 MANUA L DIFFE RENTI AL RBC comment Commen t RBCMO RP ABNOR MAL N OVALC YT RARE N POIKC Y OCCAS IONAL N ACANT HOCYT E(JUANCARLOS NTHO) RARE N ECHIN OCYTE S (ECHI NO) RARE N Not Available [facility] [address] [place], [address], 07/26/2022 10:14:30 07/25/19 23 07/26/2022 MANUA L DIFFE RENTI AL platelet comment Commen t PLATE LETS See Below N SLIGH T INCRE ASED Not Available [facility] [address] [place], [address], 07/26/2022 10:14:30 05/30/[address] ABD+p el W con [facility] ONE [facility] [place] [address] CT abdome n and pelvis with contra [...] Cuevas MD, 05/30/19 7:49 AM 65 [email or web address] [facility] [place], [address], 05/29/2021 09:20:06 05/30/19 CT ABD+p el W con [facility] [address] Addend by: HUSSEIN CUEVAS on SatMay 29, 2021 8:01:1 4 AM RADIO TELEVISION TECHNICAL DIRECTOR Addend um report : Within the body [...] pelvis . Ordere d By: MICHELL TY [facility] onical ly Signed By: Hussein Cuevas MD on 3/7/20 22 7:54 AM Interp reted By: Hussein Cuevas MD, 05/30/19 7:49 AM 65 [email or web address] [facility] 1 [facility], [place], [address], 05/29/2021 09:20:06 05/30/19 22 XR, chest [facility] [address] [facility] [place] [address] Examin ation: Chest x-ray 1 view Access ion: [id number] Exam date/t chantell: 05/30/19 7:50 AM [...] ====== === Ordere d By: MICHELL TY [facility] onical ly Signed By: Hussein Cuevas MD on 05/30/19 8:01 AM Interp reted By: Hussein Cuevas MD, 05/30/19 8:00 AM [email or web address], [place], [address], 05/29/2021 09:20:07 05/30/19 22 ECG 12-le ad [facility] [address] [facility] [place] [address] [facility] [place] [address] [place], [place] Test Date: 05-29 Pat Name: CLAIRE Reo [facility]: Eli perez ID: [id number] Room: EXAM08 08 Gender : Female Techni araceli: [place] : 1999-03 Reques tarun By: KULWANT RAMOS Order Number : [id number] Yojana mijares MD: Barbara kirkland [employer] Interv als [place] Rate: 83 P: 53 MO: 119 QRS: 76 QRSD: 82 T: 57 QT: 382 QTc: 451 Interp retive Statem ents SINUS RHYTHM WITH MARKED SINUS ARRHYT HMIA Compar ed to ECG 2016 14:21: 56 Sinus arrhyt hmia is now presen t Electr onical ly signed by Barbara kirkland at 05-30-19 11:00: [address], [address], 05/29/2021 12:19:37 05/30/19 22 ECG 12-le ad [facility] [address] [facility] [place] [address] [place], [place] Test Date: 05-29 Pat Name: CLAIRE [facility] ment: Eli perez ID: [id number] Room: [facility] 08 Gender : Female Techni araceli: [place] : 1999-03 Reques tarun By: KULWANT RAMOS Order Number : [id number] Yojana mijares MD: Barbara kirkland [employer] Interv als [place] Rate: 83 P: 53 MO: 119 QRS: 76 QRSD: 82 T: 57 QT: 382 QTc: 451 Interp retive Statem ents SINUS RHYTHM WITH MARKED SINUS ARRHYT HMIA Compar ed to ECG 2016 14:21: 56 Sinus arrhyt hmia is now presen t Electr onical ly signed by Barbara kirkland at 05-30-19 11:00: 41 RADIO TELEVISION TECHNICAL DIRECTOR [address], [address], 05/29/2021 12:19:37 08/16/[address] ABD+p el W con [facility] ONE [facility] [place] [address] EXAMIN ATION: CT ABDOME N/PELV IS WITH [...] no iv NO LABS@0 044 80 [email or web address] [facility] 1 [facility], [place], [address], 08/15/2021 09:15:17 08/16/19 22 ECG 12-le ad [facility] ONE [address] [place] [address] [place], [place] Test Date: 08-15 Pat Name: CLAIRE PIZARRO Depart ment: 41 Patien t ID: [id number] Room: [place] [address] Gender : Female Techni araceli: GDD : 1999-03 2-16 Reques tarun By: KULWANT RAMOS Order Number : [id number] Yojana mijares MD: Lokesh mijares [employer] Interv als [place] Rate: 74 P: 71 MO: 127 QRS: 83 QRSD: 80 T: 76 QT: 370 QTc: 413 Interp retive Statem ents SINUS RHYTHM WITH OCCASI ONAL SUPRAV ENTRIC ULAR PREMAT URE COMPLE XES POSSIB LE RIGHT ATRIAL ENLARG EMENT [0.25m V P-WAVE ] Compar ed to ECG 2021 06:23: 57 Since prior tracin g no signif icant change Electr onical ly signed by Lokesh mijares at 14:22: [address], [address], 08/15/2021 15:38:43 08/16/19 22 ECG 12-le ad [facility] [address] [facility] [place] [address] [facility] [place] [address] [place], [place] Test Date: 08-15 Pat Name: CLAIRE PIZARRO Depart ment: 41 Patijanet t ID: [id number] Room: [place] [address] Gender : Female Techni araceli: GDD : 1999-03 2-16 Reques tarun By: KULWANT RAMOS Order Number : [id number] Yojana mijares MD: Lokesh mijares Measur ements Interv als [place] Rate: 74 P: 71 MO: 127 QRS: 83 QRSD: 80 T: 76 QT: 370 QTc: 413 Interp retive Statem ents SINUS RHYTHM WITH OCCASI ONAL SUPRAV ENTRIC ULAR PREMAT URE COMPLE XES POSSIB LE RIGHT ATRIAL ENLARG EMENT [0.25m V P-WAVE ] Compar ed to ECG 2021 06:23: 57 Since prior tracin g no signif icant change Electr onical ly signed by Lokesh mijares at 14:22: [address], [place], [address], 08/15/2021 15:38:43 07/21/19 23 ECG 12-le ad [facility] [place] [address] [facility] [place] [address] [place], [place] Test Date: 07-19 Pat Name: CLAIRE [facility] Depart ment: 41 Patien t ID: [id number] Room: [place] Gender : Female Techni araceli: : 1999-03 Reques tarun By: SAMMI HENRY Order Number : [id number] Yojana mijares MD: Francisco Montnao Measur ements Interv als [place] Rate: 63 P: 69 MO: 131 QRS: 82 QRSD: 90 T: 72 QT: 409 QTc: 422 Interp retive Statem ents SINUS RHYTHM Compar ed to ECG 2021 00:12: 50 No signif icant change s Electr onical ly signed by Francisco Montano at 023 15:55: [address], [address], 07/23/2022 09:02:48 07/21/19 23 ECG 12-le ad [facility] ONE [facility] [place] [address] [facility] [place] [address] [place], [facility] [place] Test Date: 07-19 Pat Name: CLAIRE [facility] Depart ment: 41 Patien t ID: [id number] Room: VALENC[place] Gender : Female Techni araceli: : 1999-03 Reques tarun By: SAMMI HENRY Order Number : [id number] Yojana mijares MD: Francisco Montano Measur ements Interv als [place] Rate: 63 P: 69 MO: 131 QRS: 82 QRSD: 90 T: 72 QT: 409 QTc: 422 Interp retive Statem ents SINUS RHYTHM Compar ed to ECG 2021 00:12: 50 No signif icant change s Electr onical ly signed by Francisco Montano at 023 15:55: [address], [address], 07/23/2022 09:02:49 Result Notes None recorded. 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 Procedures Surgical History Date Name Laterality Status Provider Name and Address Organization Details Recorded Time 10/25/19 16 Control Implant Removal completed JOSÉ Fields Attn: Accounting[address] [place], [address], [place] [facility] 10/25/2015 10:38:02 02/09/20 15 Control Implant Insertion completed Myke Rosales DO Attn: [address] [place], [address], [place] [facility] 02/08/2015 16:23:25 03/25/19 14 Tonsillectomy completed JOSÉ Fields Attn: [address] [place], [address], [facility] 05/21/2014 10:51:17 Imaging Results Imaging Date Name Status LastModified by Organiz ation Details LastModified Time 05/29/2021 CT ABD+pel W con completed [address], [address], 05/29/2021 09:20:06 05/29/2021 CT ABD+pel W con completed [address], [address], 05/29/2021 09:20:06 05/29/2021 XR, chest completed [address], [place], [address], 05/29/2021 09:20:07 05/29/2021 ECG 12-lead completed [address], [place], [address], 05/29/2021 12:19:37 05/29/2021 ECG 12-lead completed [address], [place], [address], 05/29/2021 12:19:37 08/15/2021 CT ABD+pel W con completed [address], [place], [address], 08/15/2021 09:15:17 08/15/2021 ECG 12-lead completed [address], [place], [address], 08/15/2021 15:38:43 08/15/2021 ECG 12-lead completed [address], [address], 08/15/2021 15:38:43 07/20/2022 ECG 12-lead completed [address], [address], 07/23/2022 09:02:48 07/20/2022 ECG 12-lead completed [place] [address] [facility], [place], [address], 07/23/2022 09:02:49 Procedure Notes None recorded. Medical Equipment None Reported. Allergies Allergen ID Allergen Name Allergen Category Reaction Reaction Severity Criticality Documentation Date Start Date Code Code System Note Provider Name and Address Organization Details Recorded Time 65240 shellfish derived food,medi cation hives Not available Not available 05/21/2014 11807 UNK Not Available Not Available Not Available 84178 Aloe vera preparati on food,medi cation Not available Not available Not available 05/21/2014 40900 0 RxNorm Not Available Not Available Not [...] Updated DateTime 1 162.56 cm 17 kg/m2 13186.2 9 g 97.8 [degF] 118 /min 98 % 98 % 118 mm[Hg] 60 mm[Hg] [facility] 1 15:22:48 Date Recorded Body height Provider Name an d Address Organization Details Last Updated DateTime 04/13/2021 162.56 cm [facility] 2 10:53:58 Date Recorded Body height Body mass index (BMI) Body weight Body temperature Heart rate Oxygen saturation Oxygen saturation in Arterial blood by Pulse oximetry Systolic blood pressure Diastolic blood pressure Provider Name and Address Organization Details Last Updated DateTime 2 162.56 cm 17.1 kg/m2 39148.5 2 g 97.4 [degF] 70 /min 97 % 97 % 114 mm[Hg] 68 mm[Hg] [facility] 2 16:05:53 Date Recorded Body height Body mass index (BMI) Body weight Body temperature Heart rate Oxygen saturation Oxygen saturation in Arterial blood by Pulse oximetry Systolic blood pressure Diastolic blood pressure Provider Name and Address Organization Details Last Updated DateTime 3 162.56 cm 15.8 kg/m2 17125.5 g 98.2 [degF] 103 /min 97 % 97 % 97 mm[Hg] 63 mm[Hg] [facility] 3 14:16:50 Date Recorded Body temperature Body height Heart rate Oxygen saturation Oxygen saturation in Arterial blood by Pulse oximetry Body mass index (BMI) Body weight Systolic blood pressure Diastolic blood pressure Provider Name and Address Organization Details Last Updated DateTime 4 98.7 [degF] 162.56 cm 91 /min 97 % 97 % 15.8 kg/m2 09474.5 g 112 mm[Hg] 79 mm[Hg] Silvia Posada [place] - [facility] 4 10:16:44 Social History Question Answer Notes LastModified by Organizat ion Details LastModified Time Tobacco Smoking Status Never Smoker Sergio Lyn MA null, [place] - [facility] 05/21/2014 10:30:25 What Is Your Level Of Alcohol Consumption? None [email or web address] Information not available 07/16/2014 Is Blood Transfusion Acceptable In An Emergency? Yes [email or web address] Information not available 01/18/2015 What Is Your Level Of Caffeine Consumption? Moderate [email or web address] Information not available 10/22/2014 How Much Tobacco Do You Chew? None Information not available 10/22/2014 Are You Currently Employed? Yes Information not available 10/22/2014 What Type Of Diet Are You Following? REGULAR [email or web address] Information not available 01/18/2015 Which Illicit Or Recreational Drugs Have You Used? [place] [email or web address] Information not available 02/11/2017 Do You Or Have You Ever Used E-cigarettes Or Vape? Never Used Electronic Cigarettes Information not available 09/02/2019 Education 12 High School Graduate Information not available 08/07/2017 What Is Your Occupation? [employer] Information not available 08/07/2017 Live Alone Or With Others? With Others [email or web address] Information not available 10/22/2014 What Was The Date Of Your Most Recent Tobacco Screening? 08/15/2023 Information not available 08/15/2023 How Many Children Do You Have? 0 Information not available 01/18/2015 Performs Monthly Self-breast Exam? No [email or web address] Information not available 10/22/2014 Do You Use Protection During Sex? Usually Information not available 08/07/2017 What Is Your Relationship Status? Single [email or web address] Information not available 01/18/2015 Seat Belts Used Routinely Yes [email or web address] Information not available 10/22/2014 Are You Sexually Active? Yes [email or web address] Information not available 01/18/2015 Do You Or Have You Ever Used Smokeless Tobacco? Never Used Smokeless Tobacco Information not available 09/02/2019 How Much Tobacco Do You Smoke? No Information not available 10/22/2014 General Stress Level Low Information not available 01/18/2015 Do You Use Any Illicit Or Recreational Drugs? Yes Marijuana Use. [email or web address] Information not available 06/06/2021 Do You Use Sunscreen Routinely? No [email or web address] Information not available 10/22/2014 How Many Years Have You Smoked Tobacco? 0 [email or web address] Information not available 10/22/2014 Do You Or Have You Ever Used Any Other Forms Of Tobacco Or Nicotine? No Information not available 08/15/2023 Sex: Unknown Functional Status Question Answer Note LastModified by Organization D etails LastModified Time What is your exercise level? None [email or web address] Information not available 10/22/2014 Mental Status None [...] Time meningococcal MCV4P 6 completed Not Available [facility] 04/11/2019 02:47:56 HPV, quadrivalent 5 completed Not Available [facility] 04/11/2019 02:40:59 COVID-19, mRNA, LNP-S, PF, 100 mcg/0.5mL dose or 50 mcg/0.25mL dose 1 completed Silvia Posada MA null, [place] [facility] 02/23/2021 16:05:00 DTaP, unspecified formulation 0 completed Not Available [facility] 04/16/2023 16:35:20 DTaP, unspecified formulation 0 completed Not Available [facility] 04/16/2023 16:35:20 DTaP, unspecified formulation 0 completed Not Available [facility] 04/16/2023 16:35:20 DTaP, unspecified formulation 1 completed Not Available [facility] 04/16/2023 16:35:20 DTaP, unspecified formulation 4 completed Not Available [facility] 04/16/2023 16:35:20 Tdap 0 completed Not Available [...] Hib, unspecified formulation 1 completed Not Available [facility] 04/16/2023 16:35:19 Pneumococcal conjugate PCV 13 0 completed Not Available [facility] 04/16/2023 16:35:20 Pneumococcal conjugate PCV 13 1 completed Not Available [facility] 04/16/2023 16:35:20 Hep B, adolescent or pediatric 9 completed Not Available [facility] 04/16/2023 16:35:20 Hep B, adolescent or pediatric 0 completed Not Available [facility] 04/16/2023 16:35:20 Hep B, adolescent or pediatric 0 completed Not Available [facility] 04/16/2023 16:35:20 MMR 0 completed Not Available [facility] 04/16/2023 16:35:20 MMR 3 completed Not Available [facility] 04/16/2023 16:35:20 MMR 4 completed Not Available [facility] 04/16/2023 16:35:20 varicella 0 completed Not Available [facility] 04/16/2023 16:35:20 varicella 9 completed Not Available [facility] 04/16/2023 16:35:20 Hep A, ped/adol, 2 dose 2 completed Not Available [facility] 04/16/2023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
--- NOTE | 2024-05-27 14:53 | ED_ITS ---
HPI - Dental/Oral General Chief complaint: Dental/Oral Stated complaint: Poss abcess in mouth-seen yesterday Time Seen by Provider: 05/27/24 13:45 History of Present Illness HPI Narrative: Patient is a 24-year-old female who presents ER with concerns for dental abscess. Seen yesterday in the ER prescribed antibiotics however she now has swelling to her left face and a notice a bump above tooth 11. No drainage. No difficulty breathing or swelling. Related Data Home Medications ?Medication ?Instructions ?Recorded ?Confirmed ?Last Taken ?Type albuterol sulfate 90 mcg/actuation 2 inh inhalation DIRECTED 03/14/20 03/14/20 Unknown History aerosol inhaler amoxicillin 875 mg-potassium 1 tablet PO BID 03/14/20 03/14/20 Unknown History clavulanate 125 mg tablet fluticasone propionate 110 1 inh inhalation DIRECTED 03/14/20 03/14/20 Unknown History mcg/actuation HFA aerosol inhaler (Flovent HFA) Allergies Allergy/AdvReac Type Severity Reaction Status Date / Time aloe vera Allergy Hives Verified 05/27/24 13:23 shellfish derived Allergy Anaphylaxis Verified 05/27/24 13:23 Review of Systems Constitutional: Constitutional: Reports no additional constitutional complaints ENT: Reports system reviewed and no additional complaints, except as documented PMFSH Past Medical History Medical History (Updated 05/27/24 @ 14:58 by Carlos ePrez MD) Healthy female adult Surgical History Surgical History (Updated 05/27/24 @ 14:55 by Carlos Perez MD) No history of previous surgery Social History Social History Substance use type: marijuana Last use: June 2023 Gender identity (if verbalized by the patient): Female Exam Narrative: GENERAL: Well-appearing, well-nourished, and in no acute distress. HEAD: Normocephalic, atraumatic. ENT: Mucous membranes moist. Abscess above tooth 11. Poor dentition throughout mouth. CHEST: Clear to auscultation. No respiratory distress. HEART: Regular rate and rhythm. Normal peripheral pulses. EXTREMITIES: Normal range of motion. No edema. NEURO: Alert and oriented x3. PSYCH: Normal mood and affect. Course Course Emergency Course: Abscess drained. Discharge. Continue antibiotics. Vital Signs Vital signs: Vital Signs Temperature 97.5 F L 05/27/24 13:26 Pulse Rate 99 05/27/24 13:26 Respiratory Rate 16 05/27/24 13:26 Blood Pressure 93/55 L 05/27/24 13:26 Pulse Oximetry 100 05/27/24 13:26 Temperature 97.5 F L 05/27/24 13:26 Pulse Rate 99 05/27/24 13:26 Respiratory Rate 16 05/27/24 13:26 Blood Pressure 93/55 L 05/27/24 13:26 Pulse Oximetry 100 05/27/24 13:26 Procedures Abscess I/D Dental: Date of Incision: 05/27/24 Time of Incision: 14:56 Local Anesthetic: none (Cetacaine spray) Technique: needle aspiration I&D Results: Pus Discharge Plan Discharge Clinical Impression: Dental abscess Patient Disposition: Home, Self-Care Condition: Stable Instructions: Dental Abscess (ED) Additional Instructions: Continue your antibiotics. Perform warm salt water rinses 3 to 4 times a day. Massage the area of abscess to continue to drain pus. Return to the ER if you cannot breathe, you cannot swallow, or you have additional concerns. Patient Language: Persian Prescriptions: No Action albuterol sulfate 90 mcg/actuation HFA aerosol inhaler 2 inh INHALATION DIRECTED Flovent HFA 110 mcg/actuation HFA aerosol inhaler 1 inh INHALATION DIRECTED amoxicillin-pot clavulanate 875-125 mg tablet 1 tablet PO BID ondansetron 4 mg tablet,disintegrating 4 mg PO Q8H PRN (Reason: nausea and vomiting) Qty: 7 0RF sulfamethoxazole-trimethoprim [Bactrim DS] 800-160 mg tablet 1 tablet PO Q12H Qty: 10 0RF ondansetron 4 mg tablet,disintegrating 4 mg PO Q8H PRN (Reason: nausea and vomiting) Qty: 7 0RF sulfamethoxazole-trimethoprim [Bactrim DS] 800-160 mg tablet 1 tablet PO Q12H 5 Days Qty: 10 0RF metoclopramide HCl [Reglan] 10 mg tablet 10 mg PO Q6H PRN (Reason: nausea and vomiting) Qty: 20 0RF ondansetron 4 mg tablet,disintegrating 4 mg PO Q8H PRN (Reason: nausea and vomiting) Qty: 12 0RF amoxicillin 500 mg capsule 500 mg PO Q8H 7 Days Qty: 21 0RF Follow-up/Referrals: Dental Referral Line [Outside] - 1 Week UNKNOWN,DOCTOR [Primary Care Provider] -
[2024-05-27 15:12] VITALS: BP 110/71; PULSE 93; RESP 17; O2SAT 100
[2024-05-27 15:14] VITALS: BP 110/71; PULSE 93; RESP 17; O2SAT 100
--- OUTSIDE RECORDS SUMMARY | 2024-05-27 15:28 | XMS_ITS | Referral Summary ---
Author Organization [facility] Address [address] [place] [address] Care Team Providers Care Platform Consultant Name Role Phone Giselle Zhong NP Primary Care Provider [phone] Giselle Zhong NP Unavailable Allergies Active Allergy Reactions Criticality Noted Date [...] on file Legal Sex Female 3:03 AM CORRECTIONAL THERAPY TEACHER Gender Identity Not on file Sexual Orientation Not on file Last Filed Vital Signs Vital Sign Reading Time Taken Comments Blood Pressure 104/85 02/11/2024 5:44 AM CORRECTIONAL THERAPY TEACHER Pulse 75 02/11/2024 5:44 AM CORRECTIONAL THERAPY TEACHER Temperature 36.3 C (97.4 F) 02/11/2024 5:44 AM CORRECTIONAL THERAPY TEACHER Respiratory Rate 18 02/11/2024 5:44 AM CORRECTIONAL THERAPY TEACHER Oxygen Saturation 100% 02/11/2024 5:44 AM CORRECTIONAL THERAPY TEACHER Inhaled Oxygen Concentration - - Weight 49.9 kg (110 lb) 02/11/2024 5:44 AM CORRECTIONAL THERAPY TEACHER Height 162.6 cm (5' 4 ) 02/11/2024 5:44 AM CORRECTIONAL THERAPY TEACHER Body Mass Index 18.88 02/11/2024 5:44 AM CORRECTIONAL THERAPY TEACHER Plan of Treatment Not on file Insurance [facility] Care Teams Platform Consultant Relationship Specialty Start Date End Date Giselle Zhong NP PCP - General Nurse Practitioner 12/12/20 Giselle Zhong NP 12/12/20
--- OUTSIDE RECORDS SUMMARY | 2024-05-27 15:28 | XMS_ITS | Clinical Summary ---
Author Organization [facility] Address [address] [place] [address] Care Team Providers Care Marketing Co Op Name Role Phone Giselle Zhong NP Primary Care Provider [phone] Giselle Zhong NP Unavailable [phone] Allergies Active Allergy Reactions Criticality Noted [...] on file Legal Sex Female 3:03 AM CROZE CUTTER HELPER Gender Identity Not on file Sexual Orientation Not on file Obstetrics History Last Filed Vital Signs Vital Sign Reading Time Taken Comments Blood Pressure 104/85 02/11/2024 5:44 AM CROZE CUTTER HELPER Pulse 75 02/11/2024 5:44 AM CROZE CUTTER HELPER Temperature 36.3 C (97.4 F) 02/11/2024 5:44 AM CROZE CUTTER HELPER Respiratory Rate 18 02/11/2024 5:44 AM CROZE CUTTER HELPER Oxygen Saturation 100% 02/11/2024 5:44 AM CROZE CUTTER HELPER Inhaled Oxygen Concentration - - Weight 49.9 kg (110 lb) 02/11/2024 5:44 AM CROZE CUTTER HELPER Height 162.6 cm (5' 4 ) 02/11/2024 5:44 AM CROZE CUTTER HELPER Body Mass Index 18.88 02/11/2024 5:44 AM CROZE CUTTER HELPER Plan of Treatment Health Maintenance Due Date [...] 02/23, 2010 Covid-19 Vaccine Discontinued 02/23/2021 Insurance [facility] Care Teams Marketing Co Op Relationship Specialty Start Date End Date Giselle Zhong NP PCP - General Nurse Practitioner 12/12/20 Giselle Zhong NP 12/12/20
== END 2024-05-27 15:20 | disposition home or self-care (01) ==
PROVIDERS: Emergency Provider Emergency Medicine
DX: K04.7 Periapical abscess without sinus (principal)
CPT/HCPCS: 41800; 99282; A9270